=== PATIENT | male | born 1985 | race African-American/Black ===

== ENCOUNTER 2024-06-17 10:29 | Outpatient (CLI) | payer OTHER, SELFPAY ==
--- NOTE | ~2024-06-17 | XR_ITS ---
XR knee RT 3V Ordering provider: Colton Carreon MD History: . R52 - Pain, unspecified . Comparison: None. FINDINGS: BONES: No acute fracture or dislocation. JOINT SPACES: Normal. SOFT TISSUES: Normal. IMPRESSION: No acute osseous abnormality right knee. Reviewed, dictated and finalized at location A. MACHINE SETUP OPERATOR
== END 2024-06-17 10:30 | disposition home or self-care (01) ==
LOC: MICIMG 10:30
PROVIDERS: PCP Orthopaedic Surgery; Visit Provider Orthopaedic Surgery
DX: M25.561 Pain in right knee (principal)
CPT/HCPCS: 73562

== ENCOUNTER 2024-06-30 09:22 | Outpatient (CLI) | payer OTHER, SELFPAY ==
--- NOTE | ~2024-06-30 | MR_ITS ---
EXAMINATION: MR lumbar spine wo con DATE: 06/30/2024 09:58 INDICATION: Lumbago with sciatica, right-sided. TECHNIQUE: Magnetic resonance imaging (MRI) of the lumbar spine was performed without intravenous con trast. Sequences included sagittal T2-weighted FSE, sagittal T2-weighted FS FSE, sagittal T1-weighted FSE, and axial T2-weighted FSE. COMPARISON: None FINDINGS: There is 8 degrees levocurvature of thoracolumbar spine. Vertebral body heights are normal. Intervertebral disc heights are normal. The distal spinal cord signal intensity is normal. The conus medullaris is at T12-L1. The following disc levels are specifically discussed: L1-L2: The disc does not extend beyond the endplate margin. There is mild bilateral facet joint osteo arthritis. There is no neural foraminal stenosis. There is no central canal stenosis. L2-L3: The disc does not extend beyond the endplate margin. There is mild bilateral facet joint osteo arthritis. There is no neural foraminal stenosis. There is no central canal stenosis. L3-L4: The disc does not extend beyond the endplate margin. There is mild bilateral facet joint osteo arthritis. There is no neural foraminal stenosis. There is no central canal stenosis. L4-L5: The disc is bulging and has an annular fissure. There is mild bilateral facet joint osteoarthr itis. There is moderate right and mild left neural foraminal stenosis. There is mild central canal st enosis. L5-S1: The disc does not extend beyond the endplate margin. There is mild bilateral facet joint osteo arthritis. There is no neural foraminal stenosis. There is no central canal stenosis. IMPRESSION: 1. Moderate right neural foraminal stenosis at L4-L5. Otherwise mild lumbar spondylosis. Reviewed, dictated and finalized at location A. ING MACHINE OPERATOR IMPRESSION: 1. Moderate right neural foraminal stenosis at L4-L5. Otherwise mild lumbar spo ndylosis.
== END 2024-06-30 09:23 | disposition home or self-care (01) ==
PROVIDERS: PCP Physician Assistant; Visit Provider Physician Assistant
DX: M48.07 Spinal stenosis, lumbosacral region (principal); M47.816 Spondylosis without myelopathy or radiculopathy, lumbar region; M54.41 Lumbago with sciatica, right side; G89.29 Other chronic pain; M54.42 Lumbago with sciatica, left side
CPT/HCPCS: 72148

== ENCOUNTER 2024-09-12 09:27 | Outpatient (CLI) | payer OTHER, SELFPAY ==
--- NOTE | ~2024-09-12 | MR_ITS ---
EXAMINATION: MR knee RT wo con DATE: 09/12/2024 09:58 INDICATION: Chondromalacia at the right knee TECHNIQUE: Magnetic resonance imaging (MRI) of the right knee was performed without intravenous contr ast. Sequences included coronal PD-weighted FSE, coronal PD-weighted FS FSE, sagittal T2-weighted FS E, sagittal PD-weighted FS FSE and axial PD weighted fat saturated FSE. COMPARISON: None. FINDINGS: Medial compartment: Medial meniscus is normal. There is mild partial-thickness chondral fissuring along the medial rim of the central to posterior weightbearing medial femoral condyle. The remaining articular cartilage is normal. Lateral compartment: Lateral meniscus is normal. Articular cartilage is normal. Patellofemoral compartment: Deep chondral fissuring at the lateral patellar facet. There is also a slight elevation of the nondis placed near full-thickness chondral flap which measures 11 x 7 mm at the central aspect of the latera l patellar facet. There is minimal underlying subarticular edema-like signal change. There is also a single small deep chondral fissure at the inferior aspect of the medial patellar facet. Trochlear car tilage is normal. Ligaments and tendons: Anterior and posterior cruciate ligaments are normal. The medial collateral ligament and fibular katerina ateral ligament complex are normal. The extensor mechanism is normal. The visualized medial and later al hamstring tendons as well as the iliotibial band are normal. Fluid: Physiologic amount of fluid in the joint space. No loose osteochondral bodies identified. Moderate-si zed Hernández's cyst measuring 4.1 x 1.9 x 1.0 cm. Osseous/other: No fracture or pathologic marrow replacing process. IMPRESSION: 1. High-grade patellar chondromalacia with slight elevation of a nondisplaced 11 x 7 mm chondral flap at the lateral patellar facet. 2. Moderate grade chondromalacia with partial-thickness chondral fissuring/fraying along the medial r im of the central to posterior weightbearing medial femoral condyle. Reviewed, dictated and finalized at location B. [facility] [employer] IMPRESSION: 1. High-grade patellar chondromalacia with slight elevation of a nondisplaced 1 1 x 7 mm chondral flap at the lateral patellar facet. 2. Moderate grade chondromalacia with partial-thickness chondral fissuring/fray ing along the medial rim of the central to posterior weightbearing medial femor al condyle.
== END 2024-09-12 09:28 | disposition home or self-care (01) ==
PROVIDERS: PCP Physician Assistant; Visit Provider Orthopaedic Surgery
DX: M94.261 Chondromalacia, right knee (principal)
CPT/HCPCS: 73721

== ENCOUNTER 2024-10-27 00:23 | Day surgery (SDC) | payer OTHER, SELFPAY ==
[2024-10-16 16:09] VITALS: BMI 31.8
--- NOTE | 2024-10-16 16:15 | PC.NURSE ---
Report to the Outpatient Waiting Room, entrance under the green pavilion located off [facility], at time _0600_ on date _[id number]_. Planned Procedure Time: _0730_.? Time changes happen often and if your time is changed the preop area will call you the afternoon before. - You and your visitor will be asked to self-screen and do not enter if you have any COVID symptoms. Please call surgeon if you need to reschedule. - A mask is optional within the hospital at this time. Patients may have clear liquids (water, carbonated beverages, clear teas, apple juice) until 3 hours prior to surgery with a maximum of 20 ounces. - No food from midnight until time of surgery and no smoking, or chewing tobacco (or any form of nicotine). No chewing gum, candy or mints. Take only the following medications with a SIP of water on the morning of surgery: ____Bupropion and if needed may take Hydoxyzine and or Gabapentin.____ DO NOT STOP ANY OF YOUR OTHER PRESCRIPTION MEDICATIONS PRIOR TO SURGERY EXCEPT THE FOLLOWING Hold all vitamins and supplements for 3 days per anesthesiologist. Medications to discontinue per physician Date to take last dose Please no make-up, nail costa rican, hairspray, perfume, deodorant, or body powder the day of surgery.? No jewelry (including any body piercings) or valuables the day of surgery, leave them at home.? Please take a shower or bath the night before, or the morning of, surgery with an antibacterial soap.? Wear comfortable, loose fitting clothing.? - Jewelry must be removed prior to entering the operating room.? Rings and piercings that are not removed may be cut off. - The hospital will not accept responsibility for valuables.? - Please leave all valuables, including medications, at home the day of surgery. If you are going home after surgery, a licensed intermodal truck driver must drive you home.? - NO public transportation without another adult if you receive anesthesia. - We recommend that an adult stay with you for 24 hours following discharge. - We also recommend that you do not drive, make important decision, drink alcoholic beverages, or take any drugs that were not prescribed by your health care provider for at least 24 hours after your discharge time. Follow any additional instructions given to you from your surgeon. Telephone instructions given to __Robert__and asked if any additional questions and then verbalized understanding. Patient advised to call surgeon office or pre surgery nurse liaison [phone] if any additional questions.
--- NOTE | 2024-10-23 07:10 | PM.IMHP ---
H&P: HPI History of Present Illness Date/Time: 10/23/24 07:10 Chief Complaint: Patient is knee pain right. He has catching and locking of his knee. He has failed conservative treatment like to consider arthroscopic intervention. His MRI scan demonstrates patellar cartilaginous flap. Review of Systems Musculoskeletal: Musculoskeletal: Reports arthralgias, Reports joint swelling and Reports stiffness Neurologic: Reports abnormal gait PMFSH Past Medical History Medical History Anxiety Depression PTSD (post-traumatic stress disorder) Surgical History Surgical History [place] teeth removed Social History Social History Smoking status: Current every day smoker Tobacco type: e-cigarettes/vaping Alcohol intake: current Drinks per week: 4 Substance use type: does not use Do You Feel Safe in your Home?: Yes Lack of Transportation: No Lack of Food: Never True Current Housing: I Have Housing Concerned About Future Housing: No Difficulty Paying Gas/Electric Bills: No Difficulty Paying for Meds: No Currently Unemployed: No Education: Bachelor's Degree Difficulty w/ Childcare or Family Care: No Living arrangements: with family Occupation/Education: occupation Additional occupation/education comments: [employer] care concerns: No Meds Home Medications and Allergies Home Medications ?Medication ?Instructions ?Recorded ?Confirmed ?Type bupropion HCl 100 mg tablet,12 hr 100 mg PO DAILY 05/20/24 10/16/24 History sustained-release (Wellbutrin SR) hydroxyzine HCl 25 mg tablet 25 mg PO ONCE PRN anxiety 05/20/24 10/16/24 History gabapentin 300 mg capsule 300 mg PO TID 06/19/24 10/16/24 History Allergies Allergy/AdvReac Type Severity Reaction Status Date / Time amoxicillin Allergy Intermediate Swelling Verified 10/16/24 16:07 Exam Narrative: On exam he is motion his knee from 0 to 120?. He has got some catching and locking and a markedly positive patellar grind. Neurologically he is grossly intact. He walks with an antalgic gait. 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 Sequences included coronal PD-weighted FSE, coronal PD-weighted FS FSE, sagittal T2-weighted FSE, sagittal PD-weighted FS FSE and axial PD weighted fat saturated FSE. COMPARISON: None. FINDINGS: Medial compartment: Medial meniscus is normal. There is mild partial-thickness chondral fissuring along the medial rim of the central to posterior weightbearing medial femoral condyle. The remaining articular cartilage is normal. Lateral compartment: Lateral meniscus is normal. Articular cartilage is normal. Patellofemoral compartment: Deep chondral fissuring at the lateral patellar facet. There is also a slight elevation of the nondisplaced near full-thickness chondral flap which measures 11 x 7 mm at the central aspect of the lateral patellar facet. There is minimal underlying subarticular edema-like signal change. There is also a single small deep chondral fissure at the inferior aspect of the medial patellar facet. Trochlear cartilage is normal. Ligaments and tendons: Anterior and posterior cruciate ligaments are normal. The medial collateral ligament and fibular collateral ligament complex are normal. The extensor mechanism is normal. The visualized medial and lateral hamstring tendons as well as the iliotibial band are normal. Fluid: Physiologic amount of fluid in the joint space. No loose osteochondral bodies identified. Moderate-sized Hernández's cyst measuring 4.1 x 1.9 x 1.0 cm. Osseous/other: No fracture or pathologic marrow replacing process. IMPRESSION: 1. High-grade patellar chondromalacia with slight elevation of a nondisplaced 11 x 7 mm chondral flap at the lateral patellar facet. 2. Moderate grade chondromalacia with partial-thickness chondral fissuring/fraying along the medial rim of the central to posterior weightbearing medial femoral condyle. Knee X-Ray 06/17/24 Knee MRI 09/12/24 Orthopedics Result Report 05/20/24 Lumbar Spine MRI 06/30/24 Assessment and Plan Assessment and plan (1) Chondral defect of right patella: Code(s): M23.8X1 - Other internal derangements of right knee Status: Acute Assessment and Plan: Patient has a chondral flap tear delamination of the right patella. He has failed conservative treatment like to proceed with arthroscopic intervention. I discussed risks, benefits, limitations, and alternatives with the patient in detail he would like to proceed. Will proceed per his request. He understands with delamination of the cartilage this is essentially arthritis.
[2024-10-27] VITALS (11 sets, daily range): BP systolic 88–132; BP diastolic 48–87; PULSE 63–81; RESP 10–19; TEMP 36.2–36.4; O2SAT 96–100; BMI 30.6
--- OUTSIDE RECORDS SUMMARY | 2024-10-27 00:27 | XMS_ITS | Referral Summary ---
Author Organization [facility] [place] Address [address] [place] [address] Care Team Providers Care Color Making Supervisor Name Role Phone Sae Flores Primary Care Provider Encounters Date Type Department Care Team Description 09/02/2024 Telephone [facility] [address] [phone] Krish Woodson MD Orders Only 09/02/2024 10:00 AM PRINTING MACHINE MECHANIC Office Visit [facility] [address] [place] [phone] Krish Woodson MD AARON (obstructive sleep apnea) from Last 3 Months Allergies Active Allergy Reactions Criticality Noted Date Comments Amoxicillin Anaphylaxis High 06/12/2024 Medications ibuprofen (ADVIL,MOTRIN) 800 mg tablet Take 1 tablet (800 mg total) by mouth every 8 (eight) hours as needed for pain Active gabapentin (NEURONTIN) 300 mg capsuleIndicati ons:Neuropathic Pain Take 1 capsule (300 mg total) by mouth every 8 (eight) hours 90 capsule 2 06/12/2024 Active Active Problems Problem Noted Date Diagnosed Date AARON (obstructive sleep apnea) 09/02/2024 Assessment & Plan (09/02/2024 10:18 AM PRINTING MACHINE MECHANIC): The patient is currently benefitting from the auto titrating CPAP unit with a range of 9-15 cm water pressure for ongoing symptoms of AARON. He is having mask leak with the nasal pillows mask. I have recommended changing to a regular nasal CPAP mask with a chinstrap. I will send the order to [facility] and he will follow up here in 2 months. Social History Tobacco Use Types Packs/Day Years Used Date Smoking Tobacco: Every Day Vaping Sex and Gender Information Value Date Recorded Sex Assigned at Not on file Legal Sex Male 9:25 AM CDT Gender Identity Not on file Sexual Orientation Not on file Last Filed Vital Signs Vital Sign Reading Time Taken Comments Blood Pressure 122/80 09/02/2024 9:52 AM PRINTING MACHINE MECHANIC Pulse 74 09/02/2024 9:52 AM PRINTING MACHINE MECHANIC Temperature 36.9 C (98.4 F) 09/02/2024 9:52 AM PRINTING MACHINE MECHANIC Respiratory Rate 18 09/02/2024 9:52 AM PRINTING MACHINE MECHANIC Oxygen Saturation 98% 09/02/2024 9:52 AM PRINTING MACHINE MECHANIC Inhaled Oxygen Concentration - - Weight 99.3 kg (219 lb) 09/02/2024 9:52 AM PRINTING MACHINE MECHANIC Height 176.5 cm (5' 9.5 ) 09/02/2024 9:52 AM PRINTING MACHINE MECHANIC Body Mass Index 31.88 09/02/2024 9:52 AM PRINTING MACHINE MECHANIC Plan of Treatment Not on file Insurance [facility] Care Teams Color Making Supervisor Relationship Specialty Start Date End Date Sae Flores PA [address] [place], [place] [id number] PCP - General Physician Coke Oven Patcher 04/09/24
--- OUTSIDE RECORDS SUMMARY | 2024-10-27 00:27 | XMS_ITS | Patient Health Record ---
Author Organization [facility] Catalan MD [facility] Address [address] [place] [address] Care Team Providers Care Plush Weaver Name Role Phone Kraig Correa Primary Care Provider Dr. ELIZABETH Stack Unavailable [phone] Allergies Allergen (clinical drug ingredient) Drug/Non Drug Allergy documented on EMR Reaction Allergy Type Onset Date Status amoxicillin amoxicillin (uncoded) swollen throat Allergy Active Reason For Referral No Information Medications Medication SIG (Take, Route, Fr equency, Duration) Notes Start Date End Date Status Wellbutrin XL 300 MG 1 tablet in the mor noman Orally Once a day Active Problems Problem Type SNOMED Code ICD Code Onset Dates Problem Status W/U Status Risk Notes Problem Obstructive sleep apnea syndrome (disorder) (01389004) Obstructive sleep apnea (adult) (pediatric) (G47.33) Active confirmed Problem Obstructive sleep apnea (46324621) Obstructive sleep apnea (G47.33) Active confirmed Plan Of Treatment Pending Test Test Name Order Date POLYSOMNOGRAPHY W/PAP [id number] 01/17/20 23 Insurance Providers Payer Name Payer Address Payer Phone Subscriber Number Group Number Insured Name Patient Relationship to Insured Coverage Start Date Coverage End Date [facility] [id number] [place] [phone] [id number] Ajay Talamantes Self - patient is the insured 3 Medical (General) History Medical History History ICD Code anxiety depression Have there been any changes to your past medical history?: No Have any medications changed since your last appointment?: No Surgical History Surgery Date(Month/Year) wisdom teeth extraction
--- OUTSIDE RECORDS SUMMARY | 2024-10-27 00:27 | XMS_ITS | Clinical Summary ---
Author Organization [facility] [place] Address [address] [place] [address] Care Team Providers Care Rectifying Attendant Name Role Phone Sae Flores Primary Care Provider Allergies Active Allergy Reactions Criticality Noted Date [...] 09/02/2024 Assessment & Plan (09/02/2024 10:18 AM CLAY MAKER): The patient is currently benefitting from the [...] will follow up here in 2 months. Encounters Date Type Department Care Team Description 09/02/2024 10:00 AM CLAY MAKER Office Visit [facility] [address] [phone] Krish Woodson MD AARON (obstructive sleep apnea) 09/02/2024 Telephone [facility] [address] [phone] Krish Woodson MD Orders Only from Last 3 Months Medical History Medical History Date Comments [place] teeth extracted H/O radiofrequency ablation (RFA) of nerve of sherwin mbar spine Social History Tobacco Use Types Packs/Day Years Used Date Smoking Tobacco: Every Day Vaping Sex and Gender Information Value Date Recorded Sex Assigned at Not on file Legal Sex Male 9:25 AM CDT Gender Identity Not on file Sexual Orientation Not on file Obstetrics History Last Filed Vital Signs Vital Sign Reading Time Taken Comments Blood Pressure 122/80 09/02/2024 9:52 AM CLAY MAKER Pulse 74 09/02/2024 9:52 AM CLAY MAKER Temperature 36.9 C (98.4 F) 09/02/2024 9:52 AM CLAY MAKER Respiratory Rate 18 09/02/2024 9:52 AM CLAY MAKER Oxygen Saturation 98% 09/02/2024 9:52 AM CLAY MAKER Inhaled Oxygen Concentration - - Weight 99.3 kg (219 lb) 09/02/2024 9:52 AM CLAY MAKER Height 176.5 cm (5' 9.5 ) 09/02/2024 9:52 AM CLAY MAKER Body Mass Index 31.88 09/02/2024 9:52 AM CLAY MAKER Plan of Treatment Health Maintenance Due Date Last Done Comments Depression Screening 1985 Hepatitis C Screening 1985 Hepatitis B Screening 2003 Regular Well Visit/Exam 18-64 2003 Pneumococcal vaccine <65 (1 of 2 - PCV) 2004 Varicella Vaccines (1 of 2 - 13+ 2-dose series) 06/02/2014 Covid-19 Vaccine ( - season) 2024 01/03/2022, 09/30/2020, 09/02/2020 Influenza Vaccine (#1) 2024 , 07/18/2021, 07/12/2020, Additional history exists DTaP/Tdap/Td Vaccine (3 - Td or Tdap) 06/06/2031 06/06/2021, 04/21/2011, 07/06/2005 HPV Vaccines Aged Out No longer eligi ble based on patient's age to complete this topic Insurance [facility] Care Teams Rectifying Attendant Relationship Specialty Start Date End Date Sae Flores PA [address] [place] [address] PCP - General Physician Dulite Machine Bluer 04/09/24
--- OUTSIDE RECORDS SUMMARY | 2024-10-27 00:27 | XMS_ITS | Continuity of Care Document ---
Author Name [facility] Organization [facility] Care Team Providers Care Remotely Operated Vehicle Name Role Phone [facility] Unavailable Unavailable Problems Combined list of problems from Department of Defense and Veterans Affairs facilities. It does not include entries that were removed or entered in error. Problem Status Onset Date Problem Type Date of Resolution Comments Source Daily vape user Active 09/28/2024 Diagnosis 005 [facility] URI - Upper respiratory infection Active 09/28/2024 Diagnosis 0055[facility] Administrative statuses Active 07/25/2024 Diagnosis 00[facility] Adjustment disorder with depressed mood Active Condition [facility] Adjustment disorder with mixed emotional features Active Condition [facility] Esophageal reflux finding Active Condition [facility] Personal history of COVID-19 Active Condition 0117C-AF- U-[facility]th [facility] [place] Knee pain Active Condition 0117C-AF- U[facility] [place] Low back pain Active Condition 0109A-AM C [facility] Migraine Active Condition 0117C-AF- U-[facility]th [facility] [place] Medications Combined list of outpatient medications from Department of Defense and Veterans Affairs facilities.Medications provided include 1) outpatient medications from the last 15 months, and 2) patient-reported medications. Medication Details Route Status Patient Instructions Prescription Expires Prescription Number Last Dispense Date Ordering Provider Order Date Order Qty Source buPROPion 150 mg/24 hours (XL) oral tablet, extended release 3 tab(s), Oral, every 24 hr, # 90 tab(s), 3 total refill(s ), [facility]ena [facility], [id number] Oral (given by mouth) Discont inued 05/30/20232022 90.0 0109C-A [facility] buPROPion 150 mg/24 hours (XL) oral tablet, extended release 3 tab(s), Oral, every 24 hr, # 90 tab(s), 3 total refill(s ), Sagrario [facility], Pharmacy : [facility] #[id number] Oral (given by mouth) Discont inued 07/04/20232022 90.0 0109C-A [facility] buPROPion 150 mg/24 hours (XL) oral tablet, extended release 3 tab(s), Oral, every 24 hr, # 270 tab(s), 1 total refill(s ), Sagrario [facility], Pharmacy : [facility] Oral (given by mouth) Ordered 3 2022 270.0 0109C-A [facility] buPROPion 300 mg/24 hours (XL) oral tablet, extended release 1 tab(s), Oral, every 24 hr, # 30 tab(s), 3 total refill(s ), Sagrario [facility], Pharmacy : [facility] #[id number] Oral (given by mouth) Discont inued 04/20/20232022 30.0 0109C-A [facility] diclofenac 1% topical gel See instruct ions, Apply 2 grams (upper extremit ies) or 4 grams (lower extremit ies) to affected area topicall y four times daily as needed for pain. Max total body dose of 32 grams per day, # 100 g, 0 total refill(s ), Sagrario [facility], Pharmacy : [facility] Complet ed 03/11/2024 3 2023 100.0 0109C-A [facility] ergocalcife rol 1.25 mg (50,000 intl units) oral capsule 1 cap(s), Oral, every week, # 8 cap(s), 0 total refill(s ), Sagrario [facility], Pharmacy : [facility] Oral (given by mouth) Discont inued 04/20/2023 2 2022 8.0 0366C-A F-C-559 [facility] Flexeril 10 mg oral tablet 1 tab(s), Oral, every day at bedtime, # 30 tab(s), 0 total refill(s ), Sagrario muñoz, Pharmacy : [facility] Oral (given by mouth) Discont inued 05/12/2022 2 2021 30.0 [facility] Flexeril [facility] mg oral tablet 1 tab(s), Oral, TID, # 5 tab(s), 0 total refill(s ), Acute, Pharmacy : [facility] Oral (given by mouth) Complet ed 04/13/2024 4 2023 5.0 6130C-A f-C-375 [facility] FLUoxetine 10 mg oral capsule 1 cap(s), Oral, Daily, Take three tabs (30mg) for mood, # 90 cap(s), 2 total refill(s ), Sagrario [facility], Pharmacy : [facility] #[id number] Oral (given by mouth) Discont inued 10/04/20222022 90.0 0109C-A [facility] H gabapentin 300 mg capsule See Instruct ions, # 90 EA, 2 total refill(s ), Hard Stop Ordered 06/12/2025 4 2023 90.0 Ambulat ory Pharmac y hydrOXYzine hydrochlori de 10 mg oral tablet See Instruct ions, take 1/2 to 1 tablet by mouth twice a day as needed for acute anxiety. May take 1/2 to 3 tablets at bedtime as needed for sleep, # 90 tab(s), 1 total refill(s ), Sagrario [facility], Pharmacy : [facility] #[id number] Discont inued 11/01/20222022 90.0 0109C-A [facility] hydrOXYzine hydrochlori de 10 mg oral tablet See Instruct ions, take 1/2 to 1 tablet by mouth twice a day as needed for acute anxiety. May take 1/2 to 3 tablets at bedtime as needed for sleep, # 90 tab(s), 1 total refill(s ), Hard Stop, 3/1/23 1:43:40 PM [employer], Pharmacy : [facility] Complet ed 10/04/2022 2 2022 90.0 0109C-A [facility] hydrOXYzine hydrochlori de 25 mg oral tablet 1 tab(s), Oral, Daily, # 60 tab(s), 2 total refill(s ), Acute, 04/20/23 2:56:00 PM CDT, Pharmacy : [facility] #[id number] Oral (given by mouth) Discont inued 04/20/20232022 60.0 0109C-A [facility] hydrOXYzine hydrochlori de 25 mg oral tablet 1 tab(s), Oral, TID, PRN as needed for anxiety, # 60 tab(s), 2 total refill(s ), Acute, 07/04/23 9:51:00 AM [employer]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 also may take 1 - 3 tablets by mouth at bedtime for sleep as neeeded. , # 60 tab(s), 2 total refill(s ), Acute, 07/04/24 12:00:00 AM [employer], Pharmacy : [facility] Oral (given by mouth) Complet ed 07/04/2024 3 2023 60.0 0109C-A [facility] H ibuprofen 600 mg oral tablet 1 tab(s), Oral, every 6 hr, # 360 tab(s), 1 total refill(s ), Sagrario hernandez, Pharmacy : [facility] Oral (given by mouth) Ordered 4 2023 360.0 6130C-A -C-375 [facility] Lexapro 5 mg oral tablet 2 tab(s), Oral, Daily, Take one half tab (2.5mg) for 3-4 days, then increase to 5mg daily, # 60 tab(s), 0 total refill(s ), Maintena nce, [id number] Oral (given by mouth) Discont inued 11/01/20222022 60.0 0109C-A [facility] Mobic 15 mg oral tablet 1 tab(s), Oral, Daily, # 30 tab(s), 0 total refill(s ), Maintena nce, Pharmacy : [facility] Oral (given by mouth) Discont inued 05/12/2022 2 2021 30.0 0109C-A [facility] Mobic 15 mg oral tablet 1 tab(s), Oral, Daily, # 30 tab(s), 0 total refill(s ), Maintena nce, Pharmacy : [facility] Oral (given by mouth) Complet ed 07/21/2022 2 2021 30.0 0109C-A [facility] Mucinex mg, Oral, every 12 hr, 0 total refill(s ), Maintena nce Oral (given by mouth) Ordered 2024 0055C-3 [facility] PreviDent 5000 Booster 1.1% topical paste See Instruct ions, Apply 1 thin ribbon to toothbru sh. [place] thorough ly at bedtime as directed by provider ., # 51 g, 0 total refill(s ), Maintena nce, Pharmacy : [facility] Discont inued 05/30/20232022 51.0 0366C-A F-C-559 MED S[facility] -Randol ph PROzac 10 mg oral capsule See Instruct ions, Oral, take one capsule by mouth every day for 7 days, then take two capsules every day, # 53 cap(s), 3 total refill(s ), Maintena nce, 30 days, Pharmacy : [facility] Oral (given by mouth) Discont inued 08/09/20222022 53.0 0109C-A [facility] PROzac 10 mg oral capsule See Instruct ions, Oral, take one capsule by mouth every day for 7 days, then take two capsules every day, # 53 cap(s), 3 total refill(s ), [facility], 30 days, Pharmacy : [facility] #[id number] Oral (given by mouth) Discont inued 09/20/20222022 53.0 0109C-A [facility] ramelteon 8 mg oral tablet 1 tab(s), Oral, every day at bedtime, # 30 tab(s), 3 total refill(s ), [facility], Pharmacy : [facility] #[id number] Oral (given by mouth) Discont inued 04/20/20232022 30.0 0109C-A [facility] topiramate 25 mg oral capsule, extended release 1 cap(s), Oral, Daily, take one tab at night, # 7 cap(s), 0 total refill(s ), [facility], Pharmacy : [facility] #[id number] Oral (given by mouth) Discont inued 04/20/20232022 7.0 0109C-A [facility] traZODone 50 mg oral tablet 1 tab(s), Oral, every day at bedtime, PRN sleep, take 1-2 tabs at night for insomnia , # 60 tab(s), 1 total refill(s ), [facility], Pharmacy : [facility] #[id number] Oral (given by mouth) Discont inued 12/20/20222022 60.0 0109C-A [facility] H traZODone 50 mg oral tablet 1 tab(s), Oral, every day at bedtime, PRN sleep, take 2 tabs at night for insomnia , # 60 tab(s), 2 total refill(s ), [facility], Pharmacy : [facility] #[id number] Oral (given by mouth) Discont inued 04/20/20232022 60.0 0109C-A [facility] Wellbutrin XL 150 mg/24 hours oral tablet, extended release 1 tab(s), Oral, every 24 hr, # 30 tab(s), 0 total refill(s ), Sagrario hernandez, Pharmacy : [id number] Oral (given by mouth) Discont inued 11/22/20222022 30.0 0109C-A [facility] ZyrTEC Daily, 0 total refill(s ), Sagrario hernandez Ordered 2024 0055C-3 [facility] Allergies, Adverse Reactions, Alerts Combined list of allergies from Department of Defense and Veterans Affairs facilities. It does not include entries that were removed or entered in error. Substance Category Reaction Severity Reaction type Status Date Reported Comments Source amoxicillin Drug allergy Swelling round eyes Unknown Active 12/25/2005 0117C-AF -ASU-59t h MDW-SUPRIYA [place] Immunizations Combined list of available immunizations from the Department of Defense and Veterans Affairs facilities. 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 Source influenza, injectable, quadrivalent- pf 2021 SAREPRASAD [id number] 150 complet ed Result Comment: Route: Unknown Manufactu rer: OT ([facility]) 0109C-A [facility] COVID Vaccine Pfizer 2021 SAROC [id number] 208 complet ed Result Comment: Route: Unknown Manufactu rer: OT (PFR) 0109C-A [facility] SARS-CoV-2 mRNA(toziname gxx-ulab-orn) vac 2021 Betzaida 217 complet ed Result Comment: Unit: Unknown Manufactu rer: () 0117C-A F-ASU-5 9th MDW-[facility] [place] influenza, injectable, quadrivalent- pf 2020 EllylaSanchmile 150 complet ed Result Comment: Unit: Unknown Manufactu rer: () 0117C-A F-ASU-5 9th [facility] [place] Td (adult)-PF 2020 Betzaida [id number] 113 complet ed Result Comment: Route: Unknown Manufactu rer: Transcrib ed (TRS) 0117C-A F-ASU-5 9th [facility] [place] tetanus-dipht h toxoids (Td) adult/adol 2020 Betzaida [id number] 09 complet ed Result Comment: Route: Unknown Manufactu rer: OTH ([facility]) 0117C-A F-ASU-5 9th [facility] [place] COVID Vaccine Pfizer 2020 [id number] 208 PFIZER complet ed COVID Vaccine Pfizer 09/30/20 Given Ambulat ory Pharmac y COVID Vaccine Pfizer 2020 [id number] 208 PFIZER complet ed COVID Vaccine Pfizer 09/30/20 Given Ambulat ory Pharmac y COVID Vaccine Pfizer 2020 [id number] 208 PFIZER complet ed COVID Vaccine Pfizer 09/02/20 Given Ambulat ory Pharmac y COVID Vaccine Pfizer 2020 [id number] 208 PFIZER complet ed COVID Vaccine Pfizer 09/02/20 Given Ambulat ory Pharmac y Influenza, inj, MDCK, quadrivalent- pf 2019 SARAHEPRASAD 171 complet ed Result Comment: Route: Unknown Manufactu rer: () 0109C-A [facility] influenza, seasonal, injectable 2019 TRANSCR IBED 141 complet ed influenza , seasonal, injectabl e 07/07/20 Given Ambulat ory Pharmac y influenza, seasonal, injectable 2019 TRANSCR IBED 141 complet ed influenza , seasonal, injectabl e 07/07/20 Given Ambulat ory Pharmac y influenza, injectable, quadrivalent- pf 2018 [id number] 150 Seqirus complet ed influenza , injectabl e, quadrival ent-pf 06/30/19 Given Ambulat ory Pharmac y influenza, injectable, quadrivalent- pf 2017 [id number] 150 GlaxoSmithKli ne complet ed influenza , injectabl e, quadrival ent-pf 06/20/18 Given Ambulat ory Pharmac y influenza, injectable, quadrivalent- pf 2017 [id number] 150 GlaxoSmithKli ne complet ed influenza , injectabl e, quadrival ent-pf 06/20/18 Given Ambulat ory Pharmac y influenza, injectable, quadrivalent- pf 2016 [id number] 150 GlaxoSmithKli ne complet ed influenza , injectabl e, quadrival ent-pf 06/19/17 Given Ambulat ory Pharmac y influenza, injectable, quadrivalent- pf 2016 [id number] 150 GlaxoSmithKli ne complet ed influenza , injectabl e, quadrival ent-pf 06/19/17 Given Ambulat ory Pharmac y influenza, injectable, quadrivalent 2015 [id number] 158 GlaxoSmithKli ne complet ed influenza , injectabl e, quadrival ent 05/11/16 Given Ambulat ory Pharmac y influenza, injectable, quadrivalent 2015 [id number] 158 GlaxoSmithKli ne complet ed influenza , injectabl e, quadrival ent 05/11/16 Given Ambulat ory Pharmac y influenza, seasonal, injectable-pf 2014 [id number] 140 CSL Behring complet ed influenza , seasonal, injectabl e-pf 04/20/15 Given Ambulat ory Pharmac y influenza, seasonal, injectable-pf 2014 [id number] 140 CSL Behring complet ed influenza , seasonal, injectabl e-pf 04/20/15 Given Ambulat ory Pharmac y typhoid Vi capsular polysaccharid e vac 2014 [id number] 101 sanofi pasteur complet ed typhoid Vi capsular polysacch aride vac 03/22/15 Given Ambulat ory Pharmac y anthrax vaccine 2014 [id number] 24 [employer] complet ed anthrax vaccine 03/22/15 Given Ambulat ory Pharmac y typhoid Vi capsular polysaccharid e vac 2014 [id number] 101 sanofi pasteur complet ed typhoid Vi capsular polysacch aride vac 03/22/15 Given Ambulat ory Pharmac y anthrax vaccine 2014 [id number] 24 [employer] complet ed anthrax vaccine 03/22/15 Given Ambulat ory Pharmac y influenza, live, intranasal,qu adrivalent 2013 [id number] 149 Medimmune Inc comple t ed influenza , live, intranasa l,quadriv alent 05/05/14 Given Ambulat ory Pharmac y influenza, live, intranasal,qu adrivalent 2013 [id number] 149 Med[employer] Inc comple t ed influenza , live, intranasa l,quadriv alent 05/05/14 Given Ambulat ory Pharmac y influenza, live, intranasal,qu adrivalent 2012 [id number] 149 Med[employer] Inc comple t ed influenza , live, intranasa l,quadriv alent 04/11/13 Given Ambulat ory Pharmac y influenza, live, intranasal,qu adrivalent 2012 [id number] 149 Med[employer] Inc comple t ed influenza , live, intranasa l,quadriv alent 04/11/13 Given Ambulat ory Pharmac y anthrax vaccine 2012 [id number] 24 [employer] complet ed anthrax vaccine 11/22/12 Given Ambulat ory Pharmac y anthrax vaccine 2012 [id number] 24 [employer] complet ed anthrax vaccine 11/22/12 Given Ambulat ory Pharmac y tuberculin purified protein derivative 2012 [id number] 96 sanofi pasteur complet ed tuberculi n purified protein derivativ e 08/30/12 Given Ambulat ory Pharmac y anthrax vaccine 2011 [id number] 24 [employer] complet ed anthrax vaccine 04/18/12 Given Ambulat ory Pharmac y anthrax vaccine 2011 [id number] 24 [employer] complet ed anthrax vaccine 04/18/12 Given Ambulat ory Pharmac y influenza virus vaccine, live 2011 [id number] 111 Med[employer] Inc comple t ed influenza virus vaccine, live 04/16/12 Given Ambulat ory Pharmac y influenza virus vaccine, live 2011 [id number] 111 Med[employer] Inc comple t ed influenza virus vaccine, live 04/16/12 Given Ambulat ory Pharmac y tuberculin purified protein derivative 2011 [id number] 96 sanofi pasteur complet ed tuberculi n purified protein derivativ e 03/19/12 Given Ambulat ory Pharmac y tuberculin purified protein derivative 2011 [id number] 96 sanofi pasteur complet ed tuberculi n purified protein derivativ e 03/15/12 Given Ambulat ory Pharmac y anthrax vaccine 2011 [id number] 24 [employer] complet ed anthrax vaccine 10/09/11 Given Ambulat ory Pharmac y anthrax vaccine 2011 [id number] 24 [employer] complet ed anthrax vaccine 10/09/11 Given Ambulat ory Pharmac y influenza virus vaccine, live 2010 [id number] 111 Med[employer] Inc comple t ed influenza virus vaccine, live 04/25/11 Given Ambulat ory Pharmac y influenza virus vaccine, live 2010 [id number] 111 Med[employer] Inc comple t ed influenza virus vaccine, live 04/25/11 Given Ambulat ory Pharmac y tetanus, diphtheria, acellular pertu is 2010 [id number] 115 GlaxoSmithKli ne complet ed tetanus, diphtheri a, acellular pertussis 04/21/11 Given Ambulat ory Pharmac y anthrax vaccine 2010 [id number] 24 [employer] complet ed anthrax vaccine 04/21/11 Given Ambulat ory Pharmac y typhoid Vi capsular polysaccharid e vac 2010 [id number] 101 sanofi pasteur complet ed typhoid Vi capsular polysacch aride vac 04/21/11 Given Ambulat ory Pharmac y tetanus, diphtheria, acellular pertu is 2010 [id number] 115 GlaxoSmithKli ne complet ed tetanus, diphtheri a, acellular pertussis 04/21/11 Given Ambulat ory Pharmac y typhoid Vi capsular polysaccharid e vac 2010 E0549 101 sanofi pasteur complet ed typhoid Vi capsular polysacch aride vac 04/21/11 Given Ambulat ory Pharmac y anthrax vaccine 2010 [id number] 24 [employer] complet ed anthrax vaccine 04/21/11 Given Ambulat ory Pharmac y influenza virus vaccine,split 2009 [id number] 15 sanofi pasteur complet ed influenza virus vaccine,s plit 04/15/10 Given Ambulat ory Pharmac y influenza virus vaccine,split 2009 [id number] 15 sanofi pasteur complet ed influenza virus vaccine,s plit 04/15/10 Given Ambulat ory Pharmac y influenza virus vaccine,split 2009 [id number] 15 sanofi pasteur complet ed influenza virus vaccine,s plit 08/10/09 Given Ambulat ory Pharmac y Novel Influenza-H1N 1-09,live virus,nasal 2009 [id number] 125 Med[employer] Inc comple t ed Novel Influenza -N7S3-73, live virus,italo al 08/10/09 Given Ambulat ory Pharmac y Novel Influenza-H1N 1-09,live virus,nasal 2009 [id number] 125 Med[employer] Inc comple t ed Novel Influenza -M9F9-94, live virus,italo al 08/10/09 Given Ambulat ory Pharmac y influenza virus vaccine,split 2009 [id number] 15 sanofi pasteur complet ed influenza virus vaccine,s plit 08/10/09 Given Ambulat ory Pharmac y influenza virus vaccine, live 2007 [id number] 111 [employer] Inc comple t ed influenza virus vaccine, live 06/02/08 Given Ambulat ory Pharmac y influenza virus vaccine, live 2006 [id number] 111 Med[employer] Inc comple t ed influenza virus vaccine, live 06/25/07 Given Ambulat ory Pharmac y influenza virus vaccine, live 2006 [id number] 111 [employer] comple t ed influenza virus vaccine, live 06/25/07 Given Ambulat ory Pharmac y anthrax vaccine 2006 [id number] 24 [employer] complet ed anthrax vaccine 10/09/06 Given Ambulat ory Pharmac y anthrax vaccine 2006 [id number] 24 [employer] complet ed anthrax vaccine 10/09/06 Given Ambulat ory Pharmac y vaccinia (smallpox) vaccine [id number] [facility] complet ed vaccinia (smallpox ) vaccine 09/28/06 Given Ambulat ory Pharmac y vaccinia (smallpox) vaccine [id number] [facility] complet ed vaccinia (smallpox ) vaccine 09/28/06 Given Ambulat ory Pharmac y anthrax vaccine 2006 [id number] 24 [employer] complet ed anthrax vaccine 09/25/06 Given Ambulat ory Pharmac y typhoid vaccine, parenteral 2006 F7468-7 41 sanofi pasteur complet ed typhoid vaccine, parentera l 09/25/06 Given Ambulat ory Pharmac y typhoid vaccine, parenteral 2006 B5029-6 41 sanofi pasteur complet ed typhoid vaccine, parentera l 09/25/06 Given Ambulat ory Pharmac y anthrax vaccine 2006 [id number] 24 [employer] complet ed anthrax vaccine 09/25/06 Given Ambulat ory Pharmac y influenza virus vaccine,split 2005 [id number] 15 sanofi pasteur complet ed influenza virus vaccine,s plit 07/09/06 Given Ambulat ory Pharmac y influenza virus vaccine,split 2005 [id number] 15 sanofi pasteur complet ed influenza virus vaccine,s plit 07/09/06 Given Ambulat ory Pharmac y influenza virus vaccine, whole virus 2005 SARAHEPRASAD [id number] 16 complet ed Result Comment: Route: Unknown Manufactu rer: OTH ([facility]) 0109C-A [facility]-FS H hepatitis A adult vaccine 2005 [id number] 52 [employer] complet ed hepatitis A adult vaccine 02/20/06 Given Ambulat ory Pharmac y hepatitis A adult vaccine 2005 [id number] 52 [employer] Inc complet ed hepatitis A adult vaccine 02/20/06 Given Ambulat ory Pharmac y influenza virus vaccine, live 2004 [id number] 111 Med[employer] Inc comple t ed influenza virus vaccine, live 07/12/05 Given Ambulat ory Pharmac y hepatitis A adult vaccine 2004 [id number] 52 GlaxoSmithKli ne complet ed hepatitis A adult vaccine 07/12/05 Given Ambulat ory Pharmac y influenza virus vaccine, live 2004 [id number] 111 Med[employer] Inc comple t ed influenza virus vaccine, live 07/12/05 Given Ambulat ory Pharmac y hepatitis A adult vaccine 2004 [id number] 52 GlaxoSmithKli ne complet ed hepatitis A adult vaccine 07/12/05 Given Ambulat ory Pharmac y tuberculin purified protein derivative 2004 [id number] 96 sanofi pasteur complet ed tuberculi n purified protein derivativ e 07/06/05 Given Ambulat ory Pharmac y poliovirus vaccine, inactivated 2004 [id number] 10 sanofi pasteur complet ed polioviru s vaccine, inactivat ed 07/06/05 Given Ambulat ory Pharmac y tetanus-dipht h toxoids (Td) adult/adol 2004 [id number] 09 sanofi pasteur complet ed tetanus-d iphth toxoids (Td) adult/ado l 07/06/05 Given Ambulat ory Pharmac y meningococcal polysaccharid e (MPSV4) 2004 [id number] 32 sanofi pasteur complet ed meningoco ccal polysacch aride (MPSV4) 07/06/05 Given Ambulat ory Pharmac y tetanus-dipht h toxoids (Td) adult/adol 2004 [id number] 09 sanofi pasteur complet ed tetanus-d iphth toxoids (Td) adult/ado l 07/06/05 Given Ambulat ory Pharmac y meningococcal polysaccharid e (MPSV4) 2004 [id number] 32 sanofi pasteur complet ed meningoco ccal polysacch aride (MPSV4) 07/06/05 Given Ambulat ory Pharmac y poliovirus vaccine, inactivated 2004 [id number] 10 sanofi pasteur complet ed polioviru s vaccine, inactivat ed 07/06/05 Given Ambulat ory Pharmac y Results Combined list of recent chemistry, hematology and other laboratory results from Department of Defense and Veterans Affairs, ranging from 15 months to all on record, depending upon the facility. Order Name Results Value Reference Range Date Interpretation Specimen Comments Source Hematology Eosinophil % Auto 3.7 % 0 - 8 07/24 0109A-A [facility] Hematology Lymph Absolute 1.56 10^3/u L 1.20 - 3.75129 07/24 N 0109A-A [facility] H Hematology [place] Absolute 0.29 10^3/u L 0.08 - 2.98360 07/24 N 0109A-A [facility] Hematology Eos Absolute 0.17 10^3/u L 0.00 - 2.24929 07/24 N [facility] Baso Absolute 0.05 10^3/u L 0.00 - 0.95767 07/24 H 0109A-A [facility] Hematology Imm. Granulocyte Absolute 0.00 10^3/u L 0.00 - 2.48795 07/24 N 0109A-A [facility] H Hematology Lymphocyte % Auto 34.2 % 18.0 - 46.0 07/24 N 0109A-A [facility] Hematology Monocyte % Auto 6.4 % 0.0 - 10.0 07/24 N 0109A-A [facility] Hematology Basophil % Auto 1.1 % 0.0 - 2.0 07/24 N 0109A-A [facility] Hematology Neutro Absolute 2.48 10^3/u L 2.50 - 6.01188 07/24 L 0109A-A [facility] Hematology Neutrophil % Auto 54.4 % 41.0 - 73.0 07/24 N 0109A-A [facility] Chemistry TSH, Sensitive 0.74 uIU/mL 0.30 - 5.00 07/24 N Interpretive Data: If the hsTSH is <0.60 or >6.60 uIU/mL, reflex testing for Free T4 will be performed. Interference was observed at biotin concentratio ns above 30 ng/mL. Samples should not be taken from patients receiving therapy with high biotin doses (i.e. >5 mg/day) until at least 8 hours following the last biotin administrati on. 0109A-A [facility] Hematology Hematocrit 40.4 % 41.0 - 52.0 07/24 L 0109A-A [facility] Hematology RDW SD 43 07/24 0109A-A [facility] Hematology WBC 4.56 10^3/u L 3.60 - 10.31732 07/24 N 0109A-A [facility] Hematology Platelets 240 10^3/u L 142 - [id number] 07/24 N 0109A-A [facility] Hematology MCH 32.3 pg 28.0 - 33.0 07/24 N 0109A-A [facility] Hematology RDW CV 12 % 12 - 14 07/24 N 0109A-A [facility] Hematology Hemoglobin 13.4 g/dL 14.0 - 18.0 07/24 L 0109A-A [facility] Hematology MPV 9.4 fL 6.7 - 11.1 07/24 N 0109A-A [facility] Hematology MCHC 33.2 g/dL 32.0 - 36.0 07/24 N 0109A-A [facility] H Hematology RBC 4.15 10^6/u L 4.20 - 6.94510 07/24 L 0109A-A [facility] Hematology MCV 97.3 fL 83.0 - 98.0 07/24 N 0109A-A [facility] Chemistry Vitamin B12 390 pg/mL 232 - 1245 07/24 N Interpretive Data: 08 JUN 2017 Notice: Samples for this assay should not be taken from patients receiving therapy with high biotin doses (i.e. > 5 mg/day) until 8 hours following last biotin administrati on. 0117A-A F-ASU-5 9th [facility] Chemistry Folate Lvl 11.5 ng/mL 07/24 N Interpretive Data: 05 JUL 2017 Notice: Samples for thes asssay should not be taken from patients receiving therapy with high biotin doses (i.e. > 5 mg/day) until 8 hours following last biotin administrati on. Please note that these values were obtained in the [place] during National Health and Nutrition Examination Survey (NHANES), 1999 -2004. it should be taken into consideratio n that differences in the expected values may exist with respect to population and dietary status. New Reference Range effective 17 0117A-A F-ASU-5 9[facility] Chemistry Vitamin D 25 OH 13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 Carolina moyer advised to follow-up with PCM for post COVID symptoms (ie SOB, ALMENDAREZ, palpitations, chest pain, cough); if symptoms worsen, go to emergency room; verbalized understanding. Member reported travelling to [facility] for about 10 days on leave and advised to be seen by PCM or specialty provider; emergency room precautions braydon young rior to leaving; verbalized understanding. Member was advised to follow-up with pulmonology and PCM as recommended; verbalized understanding. Carolina moyer was reminded to obtain the HIV lab draw when able. ?Appointment was completed via telephone, and lasted 5-10 min. Ordered: HIV-1/O/2 EPI [id number] Repository Sample EPI [id number] Extracted from:Title: Office Clinic Note Author: MARIE PINON NP Date: 02/27/22 1. L ow back pain 36yo AD [employer] male with acute on chronic low back pain needs x-ray and MRI evaluation; lumbar pain radiating down left leg to behind knee no trauma. prior h/o RFA bilaterally. x-ray and MRI patient given written instruction sheet to call for MRI scheduling referral to physical therapy; in between to his team on [place] profile f or no running, push ups, pull ups for 30 days; referral to physical therapy; will refer to pain management once MRI returned. Have prescribed M obic t o be used o nce daily and Flexeril nightly as needed for acute flare. D iscussed sedative side effects of Flexeril. Have also encouraged him to engage in flexibility training Have also placed consult with physical therapy for evaluation through back classes to help with patient education. P atient has no red flags per history or exam. Have advised to return to clinic if symptoms persist or worsen. P atient verbalized understanding and agrees with plan. Lower back pain: Discussed associated risk factor strenuous work; patient has/not signs or symptoms red flags. Ddx includes but not limited to radiculopathy vs lumbar spinal stenosis vs Osteoarthritis - Will order MRI given symptoms of spinal cord compression,low risk of metastatic cancer or infection, radiculopathy can not attributable to a single nerve root level. -- Conservative therapy with PT - Pain control with NSAIDS pt denies allergy or other intolerance, chronic kidney disease, hypertension, peptic ulcer disease, or with cardiovascular disease. - non-benzodiazepine skeletal muscle relaxant (cyclobenzaprine) as long-term adjunctive pharmacotherapy - Ordered: cyclobenzaprine(Flexeril 10 mg oral tablet), 1 tab(s), Oral, every day at bedtime, # 30 tab(s), 0 total refill(s), Maintenance, 1 tab(s) Oral every day at bedtime, Pharmacy: [facility] [Not filled] meloxicam(Mobic 15 mg oral tablet), 1 tab(s), Oral, Daily, # 30 tab(s), 0 total refill(s), Maintenance, 1 tab(s) Oral Daily, Pharmacy: [facility] [Not filled] MRI Spine Lumbar w/o Contrast XR Spine Lumbosacral 4+ Views Referral Request 2.0 2. S hortness of breath Referral to pulmonary chronic since COVID in Aug. Patient verbalized understanding of plan of care and stated agreement. 36yo AD [employer] male c/o shortness of breath with activity particularly with exercise since having COVID in August he feels like he cannot get a deep breath in please eval and treat. thank you. --This Referral Is Electronically Signed by the Ordering Provider-- Ordered: Referral Request 2.0 10/27/2024 [address] [place] [address] Assessment and Plan Extracted from:Title : [facility] URI Author: MAEGAN TAVARES PA Date: 09/26/24 1. U RI - Upper respiratory infection 39 Years o ld M w/ PMH of seasonal allergies c /o cold-like sx x 2 d ay(s). VS notable for HR 114. Repeat 111. PE unremarkable. Lungs CTAB. No evidence of r espiratory distress, dehydration. M ost likely viral URI. L ow concern for PNA, bacterial sinusitis, strep pharyngitis. Tachycardia likely d/t current illness. CP?likely d/t frequent cough. - Discussed supportive care - Tylenol/NSAIDs for fever/pain - P t declined Mucinex since he has some at home - Quarters placed for 24 hrs - ED precautions given - F/u prn. Will consider empiric treatment with antibiotics if sx persist or worsen 2. D aily vape user Pt reports daily vape use. Pt aware of risks from vaping. States he has a stressful job and i s not interested in quitting today. - Recommended pt limit vaping with current URI sx - F/u prn The patient (is) World Wide Qualified. 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 Pt verbalized understanding and agreement. MAEGAN TAVARES, 1st Lt, PAIsaiah [facility] [place] [address] Extracted from:Title: [facility] Profile Update Author: PANKAJ FLORES PA Date: 07/25/24 1. A dministrative statuses [age]-year-old male seeking updated profile. Recommend placement on 60 day profile following umbilical hernia repair restricting from push-ups and sit ups. Recommend placement on 60 day profile for suspected meniscal tear and right knee restricting from run/walk testing. - Follow-up with PCM after orthopedic evaluation The patient (is) World Wide Qualified. 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 Quite often unanticipated grammatical, syntax, homophones, and other interpretive errors are inadvertently transcribed by the computer software. Please disregard these errors and excuse any errors that have escaped final proofreading. If are any questions regarding documentation, please contact this provider directly. Extracted from:Title: Fam med - R leg strain Author: ADEEL GUZMAN Date: 04/08/24 1. S train of adductor muscle of thigh H&P c/w acute muscle strain vs sprain, likely right adductor group. Low suspicion of fracture from history. - ibuprofen 600 q6hr for 2 weeks, then prn - no imaging indicated at this time - flexeril 5mg po qd x5 tabs - stretching, RICE, continued use discussed with Pt - quarters today - PT profile [id number]: no walk/sprint/run - worldwide qualified, cleared for mobility - f/u in 4 weeks to assess improvement, if improving f/u prn - f/u with pcp for DAG7/PHQ9 Ordered: cyclobenzaprine(Flexeril 5 mg oral tablet), 1 tab(s), Oral, TID, # 5 tab(s), 0 total refill(s), Acute, 1 tab(s) Oral TID, Pharmacy: [facility] [Not filled] ibuprofen(ibuprofen 600 mg oral tablet), 1 tab(s), Oral, every 6 hr, # 360 tab(s), 1 total refill(s), Maintenance, 1 tab(s) Oral every 6 hr, Pharmacy: [facility] [Not filled] Addendum by PAUL IBARRA DO on April 08, 2024 13:08:54 CDT I certify that I was physically present with the resident and patient. I have discussed the diagnosis and treatment plan with the resident [id number]. I have reviewed the note and concur with the findings, assessment, and plan. Follow up as listed. All labs/imaging/consults to be followed by the ordering provider. Paul Ibarra DO, Capt, [place], Staff Physician The patient (is ) World Wide Qualified. 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 Visit deployment related: N o Profile Reviewed MEB in progress: No IMR/ASIMS Status: [X] Green (no action), Member aware. Extracted from:Title: [facility] - Abd Pain/Knee Pain Author: MARKEL CINTRON MD Date: 03/11/24 1. K nee pain Chronic, bilateral, L>R Previous injections of L knee with some relief, is limiting his activity Repeat xr today bilaterally, previous MRI of L knee in 2016 showed OCL, will repeat imaging Suspect OCL vs more generalized OA causing majority of his sx Has done PT in past, consider sports med if no surgical indications Ordered: MRI Knee w/o Contrast Left XR Knee Weight Bearing 3+ Left XR Knee Weight Bearing 3+ Right Referral Request 2.0 - DoD 2. L ow back pain Negative SLR and no red flag symptoms (bowel/bladder changes, saddle anesthesia, weakness) make radiculopathy/spinal cord pathology unlikely. Symptoms and history most consistent with non-specific low back pain. Discussed with patient that low back pain is complicated, but that movement is the best treatment for disorder. Also discussed chronic nature of LBP, and how it may takes many months to fully resolve, if it ever does resolve fully. Has done PT and PM in past Would like repeat referral to PM, will place today If patient has any new weakness, difficulty walking, worsening numbness/tingling, or bowel/bladder issues, they should go to the emergency department 3. U mbilical pain Chronic, intermittent Sspect possible abd wall hernia given exam Will place ultrasound, if confirming for hernia, will refer to gen surg Otherwise, start PPI if no hernia Follow up if not improving Ordered: US Abdominal Wall The patient (is ) World Wide Qualified. 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 Visit deployment related: N o Profile Reviewed MEB in progress: No IMR/ASIMS Status: [X] Green (no action), Member aware. Patient is in agreement with the plan and voiced understanding. Markel Cintron MD, CAQSM ABDULLAHI Farias, Sports/Family Medicine Physician [address] [facility] Faculty Physician This note was dictated using [employer] dictation software. While it was proofread for errors, there may still be grammatical and dictation errors. Extracted from:Title: Profile Update Author: ELIZABETH MELGOZA MD Date: 08/09/23 1. A dministrative statuses profile(s) a ppropriately resolved. 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 P atient i s cleared for PHA and to participate in AF fitness program without restriction. S ee attached ANNUAL PERIODIC HEATLH ASSESSMENT note. P atient d enies any removal of spleen. Denies SI/HI. L abs and radiology reports over the past year r arabellawed, all abnormal results have been addressed, preventative health measures and IMR reviewed with pt l asting 15 min. Patient advised to follow up with PCM, Behavioral Health, ED/911, or [facility] as needed for continuation of care, and/or further evaluation during exacerbations of physical and/or psychological illness or injury. Appointment was completed via telephone lasting 15 min. 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 PMH AARON uses cpap, nicotine dependence, chronic pain, hx vit d deficiency. initial visit by Dr Correa Aug 2022. Hx of suicidal behavior in 2016. has hx of emotional neglect that noticeably changes his affect when discussing. multiple deployments . anticipating upcoming PCS soon in August 2023 to [facility]. Patient stopped Prozac due to sexual SE and noted benefit within a few days however with ongoing mood/hyperarousal symptoms. previously Started Lexapro but reported low adherence. previous trial of topamax for mood stability and low frustration tolerance but did not like the way he felt and he stopped using it after a very short trial. today he n otes benefit from Wellbutrin and will c ontinue 450mg. h e continues to have occasional anxiety that is overwhelming to the point where he feels the need to use hydroxyzine which is now 3 times per week and efficacious when used. will trial hydroxyzine to be used as sleep aide. endorses lack of benefit from ramelteon in past. in past he has used trazodone but did not like morning side effect. Ongoing stressor of FAP/cps case regarding 15yo son, that is still pending. previous concern for cluster b personality traits. not interested in nicotine cessation. monitor for appropriate adherence of med. No safety concerns present during this eval. Patient remains appropriate for outpt level of care. Plan --continue W ellbutrin 450mg XR daily for mood --continue Hydroxyzine 12.5mg - 25mg po prn tid as needed for anxiety --START hydroxyzine 25-75mg po prn qhs for sleep -recommend sleep hygiene. educated about avoiding nicotine use within 4 hours of going to sleep. 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 recommend eliminating screen time on devices within 1 hour of going to sleep. - patient to follow up with status of psychotherapy referral placed previously. will follow up with new provider at [facility] in about 4- 8 weeks 1. C hronic post-traumatic stress disorder 2. D epression, unspecified Orders: buPROPion(buPROPion 150 mg/24 hours (XL) oral tablet, extended release), 3 tab(s), Oral, every 24 hr, # 270 tab(s), 1 total refill(s), Maintenance, 3 tab(s) Oral every 24 hr, Pharmacy: [facility] [Federal Rx: #270 last filled 07/04/23] hydrOXYzine(hydrOXYzine hydrochloride 25 mg oral tablet), 1 tab(s), Oral, TID, PRN anxiety, may take 1 tablet by mouth as needed for anxiety up to three times per day. also may take 1 - 3 tablets by mouth at bedtime for sleep as neeeded., # 60 tab(s), 2 total refill(s), Acute, 07/04/2024, 1 tab(s) Oral TID,P... Extracted from:Title: Office Clinic Note - Knee sprain/Vasectomy Author: SARA BRADLEY NP Date: 06/07/23 1. C ontraception care education done Referred to urology Ordered: diclofenac topical(diclofenac 1% topical gel), See instructions, Apply 2 grams (upper extremities) or 4 grams (lower extremities) to affected area topically four times daily as needed for pain. Max total body dose of 32 grams per day, # 100 g, 0 total refill(s), Maintenance, Apply 2 grams (upper e... XR Knee Weight Bearing 3+ Left Referral Request 2.0 2. 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 PMH AARON uses cpap, nicotine dependence, chronic pain, hx vit d deficiency. initial visit by Dr Correa Aug 2022. Hx of suicidal behavior in 2016. has hx of emotional neglect that noticeably changes his affect when discussing. multiple d eployments . anticipating upcoming P CS soon. Patient stopped Prozac due to sexual SE and noted benefit within a few days however with ongoing mood/hyperarousal symptoms. previously Started Lexapro but reported low adherence. previous trial of topamax for mood stability and low frustration tolerance b ut did not like the way he felt and he stopped using it after a very short trial. Has noted benefit from Wellbutrin and will increase to 450mg as he continues to have breakthrough anxiety, ongoing irritability. Previously Dr Correa was concerned that bupropion was increasing irritability, though ongoing daytime work related and marital stressors seem to precipitate irritability. Ongoing stressor of FAP/cps case, that is still pending. p revious concern for arlin franco personality traits. Discussed risk benefits and alternatives and patient amenable to med changes in bupropion. not interested in nicotine cessation. monitor for appropriate adherence of med. No safety concerns present during this eval. Patient remains appropriate for outpt level of care. plan medications --INCREASe to W ellbutrin 450mg XR daily for mood --continue Hydroxyzine 12.5mg - 25mg po prn tid as needed for anxiety seek out psychotherapy, referral placed rtc n ov 29 at 0900 in person. 1. C hronic post-traumatic stress disorder 2. D epression, unspecified Orders: buPROPion(buPROPion 150 mg/24 hours (XL) oral tablet, extended release), 3 tab(s), Oral, every 24 hr, # 90 tab(s), 3 total refill(s), Maintenance, 3 tab(s) Oral every 24 hr, Pharmacy: [facility] #[id number] [External Rx] Extracted from:Title: [facility] 7W Psychiatry follow up #1 Author: YOLA FELIX Date: 04/20/23 This is a 37 yo MSGT AD AF with ppsyhx of PTSD, MDD. 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 PMH AARON uses cpap, nicotine dependence, chronic pain, hx vit d deficiency. initial visit by Dr Correa Aug 2022. Hx of suicidal behavior in 2015. multiple d eployments Patient stopped Prozac due to sexual SE and noted benefit within a few days however with ongoing mood/hyperarousal symptoms. previously Started Lexapro but reported low adherence. previous trial of topamax for mood stability and low frustration tolerance b ut did not like the way he felt and he stopped using it after a very short trial. Has noted benefit from Wellbutrin and will increase to 450mg as he continues to have breakthrough anxiety, ongoing irritability. Previously Dr Correa was concerned that bupropion was increasing irritability, though ongoing daytime work related stressors that seem to precipitate irritability. Ongoing stressor of FAP/cps case, that is still pending. Transition to marriage in summer 2022. Patient shares cognitive distortions and externalization and has hx of emotional neglect that noticeably changes his affect when discussing. Has cluster b personality traits. Discussed risk benefits and alternatives and patient amenable to med changes. not interested in nicotine cessation. Will discontinue Trazodone and Ramelteon as he is no longer having trouble with sleep with onset of cpap and he had not been taking. No safety concerns present during this initial eval. Patient remains appropriate for outpt level of care. plan medications --increase to Wellbutrin 450mg XR daily for mood --continue Hydroxyzine 25mg po prn tid as needed for anxiety --discontinue Trazodone 50-100mg PRN for insomnia --discontinue Ramelteon 8mg for insomnia --discontinue Topomax 25mg daily for irritability/RUBIN seek out psychotherapy, placed referral 1. D epression, unspecified 2. C hronic post-traumatic stress disorder Ordered: Referral Request 2.0 Orders: buPROPion(buPROPion 150 mg/24 hours (XL) oral tablet, extended release), 3 tab(s), Oral, every 24 hr, # 90 tab(s), 3 total refill(s), Maintenance, 3 tab(s) Oral every 24 hr, Pharmacy: [facility] #[id number] [External Rx] hydrOXYzine(hydrOXYzine hydrochloride 25 mg oral tablet), 1 tab(s), Oral, TID, PRN as needed for anxiety, # 60 tab(s), 2 total refill(s), Acute, 04/20/2024, 1 tab(s) Oral TID,PRN:as needed for anxiety, Pharmacy: [facility] #[id number] [External Rx] Extracted from:Title: [facility], 6T, MultiD, Psychiatry Follow Up Note Author: Madeline Kraig [place] Date: 01/10/23 This is a 37 yo 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 Current dx impression concerning for PTSD and also meets criteria for MDD. He is p harmacologically treatment naive. W ill start Prozac per his stated preference when discussing initial agents with indications to aid his treatment. Someone else is prescribing him hydroxyzine which he uses and finds somewhat helpful. Gabapentin would be good agent to explore in future in lieu of Hydroxyzine but currently patient feels it is helpful enough to not merit changing. Today sleep is primary issue so will start Trazodone. Discussed the risks, benefits, and alternatives and patient agreeable to trial. Will titrate prozac due to partial response. [1] Patient stopped Prozac due to sexual SE and noted benefit within a few days however with ongoing mood/hyperarousal symptoms. Instead of salvaging this medication that was otherwise helpful will try another agent particularly as patient has been off for 6 days (acknowledging long half life). Started Lexapro at [facility] but reporting low adherence. As patient primary wanting to work on motivation and low energy, will trial alternative medication with more dopaminergic/nonepienphric tone like Wellbutrin. We've now titrated to 300mg but not titrating further due to immergence of increased irritability. Wanting to continue agent but ongoing low frustration tolerance so will add Topomax (pt also endorsing frequent RUBIN). Discussed risk benefits and alternatives and patient amenable to starting. Will continue Hydroxyzine Trazodone and Ramelteon (not started yet). Sleep consult approved, pending actual appt. Employed [place] approach to consideration of psychosocial stressors. No safety concerns present during this initial eval. Patient remains appropriate for outpt level of care. 1. D epression, unspecified --Continue Wellbutrin 300mg XR daily 2. P ost-traumatic stress disorder, chronic --Continue PRN Hydroxyzine --Continue Trazodone 50-100mg PRN for insomnia --Start Rameltino 8mg for insomnia --Start Topomax 2 5mg daily for irritability/RUBIN Orders: topiramate(topiramate 25 mg oral capsule, extended release), 1 cap(s), Oral, Daily, take one tab at night, # 7 cap(s), 0 total refill(s), Maintenance, 1 cap(s) Oral Daily,Instr:take one tab at night, Pharmacy: [facility] #[id number] [External Rx] Prognosis: Fair Benefits, Risks, Alternatives Discussed: Yes Treatment Plan: Referral to individual, family or group therapy Number of Visits Expected: Other: TBD Target Symptoms: Anxiety Goals of Treatment: Decrease in target symptoms, Other: Methods of Monitoring Outcomes: Other: TBD Evaluation Type: Time based Goals of Treatment #1: Other: Deferred Treatment Planning Requirements: 2) Patient agrees to attend appointments, engage in treatment, discuss any concerns in order to meet treatment goals, 3) Provider will leverage patient strengths and limit potential barriers to treatment Extracted from:Title: [facility], 6T, MultiD, Psychiatry Follow Up Note Author: Kraig Correa Date: 12/20/22 T his is a 37 yo 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 Current dx impression concerning for PTSD and also meets criteria for MDD. He is p harmacologically treatment naive. W ill start Prozac per his stated preference when discussing initial agents with indications to aid his treatment. Someone else is prescribing him hydroxyzine which he uses and finds somewhat helpful. Gabapentin would be good agent to explore in future in lieu of Hydroxyzine but currently patient feels it is helpful enough to not merit changing. Today sleep is primary issue so will start Trazodone. Discussed the risks, benefits, and alternatives and patient agreeable to trial. Will titrate prozac due to partial response. [1] Patient stopped Prozac due to sexual SE and noted benefit within a few days however with ongoing mood/hyperarousal symptoms. Instead of salvaging this medication that was otherwise helpful will try another agent particularly as patient has been off for 6 days (acknowledging long half life). Started Lexapro at [facility] but reporting low adherence. As patient primary wanting to work on motivation and low energy, will trial alternative medication with more dopaminergic/nonepienphric tone like Wellbutrin. Given benefit of PRN Hydroxyzine, will increase dose to reflect how patient is actually taking it.[1] Wellbutrin has been helpful for energy during day but not titrating today due to ongoing anxiety/irritability symptoms. Instead will titrate PRN traz and add ramelteon as sleep is foremost concern today. Topomax/Prazosin will be next step for hyperarousal sx although not nightmare burden. M y sleep consult was rejected so submitted again today with extensive justification. Employed [place] approach to consideration of psychosocial stressors. No safety concerns present during this initial eval. Patient remains appropriate for outpt level of care. 1. P ost-traumatic stress disorder, chronic --Continue PRN Hydroxyzine --Continue Trazodone 50-100mg PRN for insomnia --Start Rameltino 8mg for insomnia 2. M ajor depressive disorder, recurrent, moderate --Continue Wellbutrin 300mg XR daily Orders: ramelteon(ramelteon 8 mg oral tablet), 1 tab(s), Oral, every day at bedtime, # 30 tab(s), 3 total refill(s), Maintenance, 1 tab(s) Oral every day at bedtime, Pharmacy: [facility] #[id number] [External Rx] traZODone(traZODone 50 mg oral tablet), 1 tab(s), Oral, every day at bedtime, PRN sleep, take 2 tabs at night for insomnia, # 60 tab(s), 2 total refill(s), Maintenance, 1 tab(s) Oral every day at bedtime,PRN:sleep,Instr:take 2 tabs at night for insomnia, Pharmacy: [facility] #[id number] [E Referral Request 2.0 Prognosis: Fair Benefits, Risks, Alternatives Discussed: Yes Treatment Plan: Referral to individual, family or group therapy Number of Visits Expected: Other: TBD Target Symptoms: Anxiety Goals of Treatment: Decrease in target symptoms, Other: Methods of Monitoring Outcomes: Other: TBD Evaluation Type: Time based Goals of Treatment #1: Other: Deferred Treatment Planning Requirements: 2) Patient agrees to attend appointments, engage in treatment, discuss any concerns in order to meet treatment goals, 3) Provider will leverage patient strengths and limit potential barriers to treatment Extracted from:Title: [facility], 6T, MultiD, Psychiatry Follow Up Note Author: Kraig Correa Date: 11/22/22 This is a 37 yo 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 Current dx impression concerning for PTSD and also meets criteria for MDD. He is p harmacologically treatment naive. W ill start Prozac per his stated preference when discussing initial agents with indications to aid his treatment. Someone else is prescribing him hydroxyzine which he uses and finds somewhat helpful. Gabapentin would be good agent to explore in future in lieu of Hydroxyzine but currently patient feels it is helpful enough to not merit changing. Today sleep is primary issue so will start Trazodone. Discussed the risks, benefits, and alternatives and patient agreeable to trial. Will titrate prozac due to partial response. [1] Patient stopped Prozac due to sexual SE and noted benefit within a few days however with ongoing mood/hyperarousal symptoms. Instead of salvaging this medication that was otherwise helpful will try another agent particularly as patient has been off for 6 days (acknowledging long half life). Started Lexapro at [facility] but reporting low adherence. As patient primary wanting to work on motivation and low energy, will trial alternative medication with more dopaminergic/nonepienphric tone like Wellbutrin. Given benefit of PRN Hydroxyzine, will increase dose to reflect how patient is actually taking it.[1] Partial beenfit from Wellbutrin but ongoign sx so will titrate. Still waiting for sleep study. Put in order as well. Patient will call [facility] line to check status. Employed [place] approach to consideration of psychosocial stressors. No safety concerns present during this initial eval. Patient remains appropriate for outpt level of care. 1. P ost-traumatic stress disorder, chronic --Continue PRN Hydroxyzine --Continue Trazodone 50-100mg PRN for insomnia 2. M ajor depressive disorder, recurrent, moderate --Stop Lexapro --Inc to Wellbutrin 300mg XR daily Orders: buPROPion(buPROPion 300 mg/24 hours (XL) oral tablet, extended release), 1 tab(s), Oral, every 24 hr, # 30 tab(s), 3 total refill(s), Maintenance, 1 tab(s) Oral every 24 hr, Pharmacy: [facility] #[id number] [External Rx] Prognosis: Fair Benefits, Risks, Alternatives Discussed: Yes Treatment Plan: Referral to individual, family or group therapy Number of Visits Expected: Other: TBD Target Symptoms: Anxiety Goals of Treatment: Decrease in target symptoms, Other: Methods of Monitoring Outcomes: Other: TBD Evaluation Type: Time based Goals of Treatment #1: Other: Deferred Treatment Planning Requirements: 2) Patient agrees to attend appointments, engage in treatment, discuss any concerns in order to meet treatment goals, 3) Provider will leverage patient strengths and limit potential barriers to treatment Extracted from:Title: [facility], 6T, MultiD, Psychiatry Follow Up Note Author: Kraig Correa Date: 11/01/22 This is a 37 yo 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 Current dx impression concerning for PTSD and also meets criteria for MDD. He is p harmacologically treatment naive. W ill start Prozac per his stated preference when discussing initial agents with indications to aid his treatment. Someone else is prescribing him hydroxyzine which he uses and finds somewhat helpful. Gabapentin would be good agent to explore in future in lieu of Hydroxyzine but currently patient feels it is helpful enough to not merit changing. Today sleep is primary issue so will start Trazodone. Discussed the risks, benefits, and alternatives and patient agreeable to trial. Will titrate prozac due to partial response. [1] Patient stopped Prozac due to sexual SE and noted benefit within a few days however with ongoing mood/hyperarousal symptoms. Instead of salvaging this medication that was otherwise helpful will try another agent particularly as patient has been off for 6 days (acknowledging long half life). Started Lexapro at but reporting low adherence. As patietn primary wanting to work on motivation and low energy, will trial alternative medication with more dopaminergic/nonepienphric tone like Wellbutrin. Given benefit of PRN Hydroxyzine, will increase dose to reflect how patient is actually taking it. Still waiting for sleep study. Messaged PCM to help expedite and encouraged patient to call [facility] line to check status. No safety concerns present during this initial eval. Patient remains appropriate for outpt level of care. We agree to meet in person for out next appt 11/22 at 1:00AM 1. M ajor depressive disorder, recurrent, moderate --Stop Lexapro --Start Wellbutrin 150mg XR daily 2. P ost-traumatic stress disorder, chronic --Continue PRN Hydroxyzine --Continue Trazodone 50-100mg PRN for insomnia Orders: hydrOXYzine(hydrOXYzine hydrochloride 25 mg oral tablet), 1 tab(s), Oral, Daily, # 60 tab(s), 2 total refill(s), Acute, 11/02/2025, 1 tab(s) Oral Daily, Pharmacy: [facility] #[id number] [External Rx] buPROPion(Wellbutrin XL 150 mg/24 hours oral tablet, extended release), 1 tab(s), Oral, every 24 hr, # 30 tab(s), 0 total refill(s), Maintenance, 1 tab(s) Oral every 24 hr, Pharmacy: [facility] #[id number] [External Rx] Prognosis: Fair Benefits, Risks, Alternatives Discussed: Yes Treatment Plan: Referral to individual, family or group therapy Number of Visits Expected: Other: TBD Target Symptoms: Anxiety Goals of Treatment: Decrease in target symptoms, Other: Methods of Monitoring Outcomes: Other: TBD Evaluation Type: Time based Goals of Treatment #1: Other: Deferred Treatment Planning Requirements: 2) Patient agrees to attend appointments, engage in treatment, discuss any concerns in order to meet treatment goals, 3) Provider will leverage patient strengths and limit potential barriers to treatment Extracted from:Title: [facility], 6T, MultiD, Psychiatry Follow Up Note Author: Kraig Correa Date: 10/04/22 This is a 37 yo 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 Current dx impression concerning for PTSD and also meets criteria for MDD. He is p harmacologically treatment naive. W ill start Prozac per his stated preference when discussing initial agents with indications to aid his treatment. Someone else is prescribing him hydroxyzine which he uses and finds somewhat helpful. Gabapentin would be good agent to explore in future in lieu of Hydroxyzine but currently patient feels it is helpful enough to not merit changing. Today sleep is primary issue so will start Trazodone. Discussed the risks, benefits, and alternatives and patient agreeable to trial. Will titrate prozac due to partial response. [1] Patient stopped Prozac due to sexual SE and noted benefit within a few days however with ongoing mood/hyperarousal symptoms. Instead of salvaging this medication that was otherwise helpful will try another agent particularly as patient has been off for 6 days (acknowledging long half life). No safety concerns present during this initial eval. Patient remains appropriate for outpt level of care. W e agree to meet in person for out next appt 11/01 at 11:00AM 1. D epression, unspecified --Stop Prozac --Start Lexapro 2.5mg to increase to 5mg after 3-4 days if tolerated 2. P ost-traumatic stress disorder, chronic --Start Lexapro 2.5mg to increase to 5mg after 3-4 days if tolerated --Continue PRN Hydroxyzine --Continue Trazodone 50-100mg PRN for insomnia Orders: hydrOXYzine(hydrOXYzine hydrochloride 10 mg oral tablet), See Instructions, take 1/2 to 1 tablet by mouth twice a day as needed for acute anxiety. May take 1/2 to 3 tablets at bedtime as needed for sleep, # 90 tab(s), 1 total refill(s), Maintenance, take 1/2 to 1 tablet by mouth twice a day as needed for acu... escitalopram(Lexapro 5 mg oral tablet), 2 tab(s), Oral, Daily, Take one half tab (2.5mg) for 3-4 days, then increase to 5mg daily, # 60 tab(s), 0 total refill(s), Maintenance, 2 tab(s) Oral Daily,Instr:Take one half tab (2.5mg) for 3-4 days, then increase to 5mg daily, Pharmacy: [facility]. No qualifying data available. Extracted from:Title: [facility], 6T, MultiD, Psychiatry Follow Up Note Author: Kraig Correa Date: 09/20/22 This is a 37 yo 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 Current dx impression concerning for PTSD and also meets criteria for MDD. He is p harmacologically treatment naive. W ill start Prozac per his stated preference when discussing initial agents with indications to aid his treatment. Someone else is prescribing him hydroxyzine which he uses and finds somewhat helpful. Gabapentin would be good agent to explore in future in lieu of Hydroxyzine but currently patient feels it is helpful enough to not merit changing. [1] Today sleep is primary issue so will start Trazodone. Discussed the risks, benefits, and alternatives and patient agreeable to trial. Will titrate prozac due to partial response. No safety concerns present during this initial eval. Patient remains appropriate for outpt level of care. 1. P ost-traumatic stress disorder, chronic --Increase to Prozac 30mg daily for PTSD/Mood --Start Trazodone 50-100mg at night PRN for insomnia 2. M ajor depressive disorder, recurrent, moderate --Increase to Prozac 30mg daily for PTSD/Mood --Start Trazodone 50-100mg at night PRN for insomnia --Continue Hydroxyzine 10mg TID PRN for anxiety Orders: FLUoxetine(FLUoxetine 10 mg oral capsule), 1 cap(s), Oral, Daily, Take three tabs (30mg) for mood, # 90 cap(s), 2 total refill(s), Maintenance, 1 cap(s) Oral Daily,Instr:Take three tabs (30mg) for mood, Pharmacy: [facility] #[id number] [External Rx] traZODone(traZODone 50 mg oral tablet), 1 tab(s), Oral, every day at bedtime, PRN sleep, take 1-2 tabs at night for insomnia, # 60 tab(s), 1 total refill(s), Maintenance, 1 tab(s) Oral every day at bedtime,PRN:sleep,Instr:take 1-2 tabs at night for insomnia, Pharmacy: [facility] #... Prognosis: Fair Benefits, Risks, Alternatives Discussed: Yes Treatment Plan: Referral to individual, family or group therapy Number of Visits Expected: Other: TBD Target Symptoms: Anxiety Goals of Treatment: Decrease in target symptoms, Other: Methods of Monitoring Outcomes: Other: TBD Evaluation Type: Time based Goals of Treatment #1: Other: Deferred Treatment Planning Requirements: 2) Patient agrees to attend appointments, engage in treatment, discuss any concerns in order to meet treatment goals, 3) Provider will leverage patient strengths and limit potential barriers to treatment Extracted from:Title: [facility], [facility], [facility], Psychiatry Inital Visit Note Author: Kraig Correa [place] Date: 08/09/22 This is a 37 yo 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 Current dx impression concerning for PTSD and also meets criteria for MDD. He is p harmacologically treatment naive. W ill start Prozac per his stated preference when discussing initial agents with indications to aid his treatment. Someone else is prescribing him hydroxyzine which he uses and finds somewhat helpful. Gabapentin would be good agent to explore in future in lieu of Hydroxyzine but currently patient feels it is helpful enough to not merit changing. No safety concerns present during this initial eval. Patient remains appropriate for outpt level of care. 1. P ost-traumatic stress disorder, chronic --Prozac 10mg daily (titrated to 20mg after one week) 2. D epression, unspecified --Prozac 10mg daily (titrated to 20mg after one week) Orders: FLUoxetine(PROzac 10 mg oral capsule), See Instructions, Oral, take one capsule by mouth every day for 7 days, then take two capsules every day, # 53 cap(s), 3 total refill(s), Maintenance, 30 days, take one capsule by mouth every day for 7 days, then take two capsules every day, Pharmacy:... Prognosis: Fair Benefits, Risks, Alternatives Discussed: Yes Treatment Plan: Referral to individual, family or group therapy Number of Visits Expected: Other: TBD Target Symptoms: Anxiety Goals of Treatment: Decrease in target symptoms, Other: Methods of Monitoring Outcomes: Other: TBD Evaluation Type: Time based Goals of Treatment #1: Other: Deferred Treatment Planning Requirements: 2) Patient agrees to attend appointments, engage in treatment, discuss any concerns in order to meet treatment goals, 3) Provider will leverage patient strengths and limit potential barriers to treatment Extracted from:Title: Office Clinic Note Author: DIXON CAMPBELL MD Date: 07/14/22 Accessory navicular Ordered: CT Lower Extremity w/o Contrast Right Acquired pes planus Ordered: CT Lower Extremity w/o Contrast Right 1. Reviewed name, , medications and radiographs with patient. 2. Discussed non-surgical i ntervention with patient to include inserts, bracing, physical therapy to include ROM, stretching, balancing and strengthening exercises, rest, ice, elevation, compression, therapeutic injections as well as the expected a ctivity level. Patient confirms understanding. 3. The patient has been instructed to continue activity to tolerance 4. He will RTC for CT review of the right foot and orthotics f/u Extracted from:Title: Office Clinic Note Author: MARIE PINON NP Date: 05/12/22 1. F oot pain 36yo AD [facility] male with arch foot pain x 2 months; flat foot present; r/o fracture; thank you. 36yo AD [facility] male with arch foot pain x 2 months; flat foot present; ; please eval and treat. thank you. --This Referral Is Electronically Signed by the Ordering Provider-- Renewal on Mobic. If symptoms worsen or do not improve return to clinic or ER for reevaluation. Desires a profile for not running, 30 days recommended. Ordered: XR Foot Weight Bearing 3+ Right Referral Request 2.0 2. S hortness of breath 02/27/22 encounter for Shortness of breath; appointment was supposed to be for 04/23 but [place] and had to reschedule. CXR today. Keep pulmonary referral a ppointment already scheduled. Patient verbalized understanding of plan of care and stated agreement. R eferral to pulmonary chronic since COVID in Aug. Patient verbalized understanding of plan of care and stated agreement. 36yo AD [employer] male c/o shortness of breath with activity particularly with exercise since having COVID in August he feels like he cannot get a deep breath in please eval and treat. thank you. 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 [place] moyer is cleared for PHA and to participate in AF fitness program without restriction. S ee attached ANNUAL PERIODIC HEATLH ASSESSMENT note. [place] moyer denied having a splenectomy in the past. [place] moyer denies SI/HI. A vailable labs and radiology reports since last Annual PHA were reviewed and addressed if not addressed prior to this visit. [place] moyer states priority responses of occasional chest pain, dizziness, and abnormal heart rate especially post COVID and exercising; denied chest pain today, palpitations, SOB, ALMENDAREZ, syncope, nonradiating, dizziness; advised to go to emergency room; and to follow-up with PCM; verbalized understanding. [place] moyer advised to follow-up with PCM for post COVID symptoms (ie SOB, ALMENDAREZ, palpitations, chest pain, cough); if symptoms worsen, go to emergency room; verbalized understanding. Member reported travelling to [facility] for about 10 days on leave and advised to be seen by PCM or specialty provider; emergency room precautions g grayson young rior to leaving; verbalized understanding. Member was advised to follow-up with pulmonology and PCM as recommended; verbalized understanding. [place] moyer was reminded to obtain the HIV lab draw when able. ?Appointment was completed via telephone, and lasted 5-10 min. Ordered: HIV-1/O/2 EPI [id number] Repository Sample EPI [id number] Extracted from:Title: Office Clinic Note Author: MARIE PINON NP Date: 02/27/22 1. L ow back pain 36yo AD [employer] male with acute on chronic low back pain needs x-ray and MRI evaluation; lumbar pain radiating down left leg to behind knee no trauma. prior h/o RFA bilaterally. x-ray and MRI patient given written instruction sheet to call for MRI scheduling referral to physical therapy; in between to his team on [place] profile f or no running, push ups, pull ups for 30 days; referral to physical therapy; will refer to pain management once MRI returned. Have prescribed M obic t o be used o nce daily and Flexeril nightly as needed for acute flare. D iscussed sedative side effects of Flexeril. Have also encouraged him to engage in flexibility training Have also placed consult with physical therapy for evaluation through back classes to help with patient education. P atient has no red flags per history or exam. Have advised to return to clinic if symptoms persist or worsen. P atient verbalized understanding and agrees with plan. Lower back pain: Discussed associated risk factor strenuous work; patient has/not signs or symptoms red flags. Ddx includes but not limited to radiculopathy vs lumbar spinal stenosis vs Osteoarthritis - Will order MRI given symptoms of spinal cord compression,low risk of metastatic cancer or infection, radiculopathy can not attributable to a single nerve root level. -- Conservative therapy with PT - Pain control with NSAIDS pt denies allergy or other intolerance, chronic kidney disease, hypertension, peptic ulcer disease, or with cardiovascular disease. - non-benzodiazepine skeletal muscle relaxant (cyclobenzaprine) as long-term adjunctive pharmacotherapy - Ordered: cyclobenzaprine(Flexeril 10 mg oral tablet), 1 tab(s), Oral, every day at bedtime, # 30 tab(s), 0 total refill(s), Maintenance, 1 tab(s) Oral every day at bedtime, Pharmacy: [facility] [Not filled] meloxicam(Mobic 15 mg oral tablet), 1 tab(s), Oral, Daily, # 30 tab(s), 0 total refill(s), Maintenance, 1 tab(s) Oral Daily, Pharmacy: [facility] [Not filled] MRI Spine Lumbar w/o Contrast XR Spine Lumbosacral 4+ Views Referral Request 2.0 2. S hortness of breath Referral to pulmonary chronic since COVID in Aug. Patient verbalized understanding of plan of care and stated agreement. 36yo AD USAF male c/o shortness of breath with activity particularly with exercise since having COVID in August he feels like he cannot get a deep breath in please eval and treat. thank you. --This Referral Is Electronically Signed by the Ordering Provider-- Ordered: Referral Request 2.0 10/27/2024 [id number] [facility] Extracted from:Title : [facility] URI Author: MAEGAN TAVARES PA Date: 09/26/24 1. U RI - Upper respiratory infection 39 Years o ld M w/ PMH of seasonal allergies c /o cold-like sx x 2 d ay(s). VS notable for HR 114. Repeat 111. PE unremarkable. Lungs CTAB. No evidence of r espiratory distress, dehydration. M ost likely viral URI. L ow concern for PNA, bacterial sinusitis, strep pharyngitis. Tachycardia likely d/t current illness. CP?likely d/t frequent cough. - Discussed supportive care - Tylenol/NSAIDs for fever/pain - P t declined Mucinex since he has some at home - Quarters placed for 24 hrs - ED precautions given - F/u prn. Will consider empiric treatment with antibiotics if sx persist or worsen 2. D aily vape user Pt reports daily vape use. Pt aware of risks from vaping. States he has a stressful job and i s not interested in quitting today. - Recommended pt limit vaping with current URI sx - F/u prn The patient (is) World Wide Qualified. 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 Pt verbalized understanding and agreement. MAEGAN TAVARES, 1st Lt, PA-C [facility] [place] [address] Extracted from:Title: [facility] Profile Update Author: PANKAJ FLORES PA Date: 07/25/24 1. A dministrative statuses [age]-year-old male seeking updated profile. Recommend placement on 60 day profile following umbilical hernia repair restricting from push-ups and sit ups. Recommend placement on 60 day profile for suspected meniscal tear and right knee restricting from run/walk testing. - Follow-up with PCM after orthopedic evaluation The patient (is) World Wide Qualified. AM Dispo: Non-Fly Cleared for AFSC/MOS Duties: Y es with limitations Cleared for continued service: Yes Cleared for mobility duties: Yes Cleared for participation in physical fitness program: Yes with restrictions PHA/MHA/DRHA: UTD Visit deployment related: No Profile Reviewed Yes MEB in progress: No IMR/ASIMS Status: Kaylan Healy J shantanu Flores, BSC, PA-C [facility] ([facility]) Pankaj GUTIERREZ Please note that this dictation was completed with computer voice recognition software, RenéSim. Quite often unanticipated grammatical, syntax, homophones, and other interpretive errors are inadvertently transcribed by the computer software. Please disregard these errors and excuse any errors that have escaped final proofreading. If are any questions regarding documentation, please contact this provider directly. Extracted from:Title: Fam med - R leg strain Author: ADEEL GUZMAN Date: 04/08/24 1. S train of adductor muscle of thigh H&P c/w acute muscle strain vs sprain, likely right adductor group. Low suspicion of fracture from history. - ibuprofen 600 q6hr for 2 weeks, then prn - no imaging indicated at this time - flexeril 5mg po qd x5 tabs - stretching, RICE, continued use discussed with Pt - quarters today - PT profile [id number]: no walk/sprint/run - worldwide qualified, cleared for mobility - f/u in 4 weeks to assess improvement, if improving f/u prn - f/u with pcp for DAG7/PHQ9 Ordered: cyclobenzaprine(Flexeril 5 mg oral tablet), 1 tab(s), Oral, TID, # 5 tab(s), 0 total refill(s), Acute, 1 tab(s) Oral TID, Pharmacy: [facility] [Not filled] ibuprofen(ibuprofen 600 mg oral tablet), 1 tab(s), Oral, every 6 hr, # 360 tab(s), 1 total refill(s), Maintenance, 1 tab(s) Oral every 6 hr, Pharmacy: [facility] [Not filled] Addendum by PAUL IBARRA DO on April 08, 2024 13:08:54 CDT I certify that I was physically present with the resident and patient. I have discussed the diagnosis and treatment plan with the resident crup-on-zhps. I have reviewed the note and concur with the findings, assessment, and plan. Follow up as listed. All labs/imaging/consults to be followed by the ordering provider. Paul Ibarra DO, Capt, [employer], Staff Physician The patient (is ) World Wide Qualified. 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 Visit deployment related: N o Profile Reviewed MEB in progress: No IMR/ASIMS Status: [X] Green (no action), Member aware. Extracted from:Title: [facility] - Abd Pain/Knee Pain Author: MARKEL CINTRON MD Date: 03/11/24 1. K nee pain Chronic, bilateral, L>R Previous injections of L knee with some relief, is limiting his activity Repeat xr today bilaterally, previous MRI of L knee in 2016 showed OCL, will repeat imaging Suspect OCL vs more generalized OA causing majority of his sx Has done PT in past, consider sports med if no surgical indications Ordered: MRI Knee w/o Contrast Left XR Knee Weight Bearing 3+ Left XR Knee Weight Bearing 3+ Right Referral Request 2.0 - DoD 2. L ow back pain Negative SLR and no red flag symptoms (bowel/bladder changes, saddle anesthesia, weakness) make radiculopathy/spinal cord pathology unlikely. Symptoms and history most consistent with non-specific low back pain. Discussed with patient that low back pain is complicated, but that movement is the best treatment for disorder. Also discussed chronic nature of LBP, and how it may takes many months to fully resolve, if it ever does resolve fully. Has done PT and PM in past Would like repeat referral to PM, will place today If patient has any new weakness, difficulty walking, worsening numbness/tingling, or bowel/bladder issues, they should go to the emergency department 3. U mbilical pain Chronic, intermittent Sspect possible abd wall hernia given exam Will place ultrasound, if confirming for hernia, will refer to gen surg Otherwise, start PPI if no hernia Follow up if not improving Ordered: US Abdominal Wall The patient (is ) World Wide Qualified. 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 Visit deployment related: N o Profile Reviewed MEB in progress: No IMR/ASIMS Status: [X] Green (no action), Member aware. Patient is in agreement with the plan and voiced understanding. Markel Cintron MD, CAQSM ABDULLAHI Farias, Sports/Family Medicine Physician [address] COS/SGGF [facility] Faculty Physician This note was dictated using [employer] dictation software. While it was proofread for errors, there may still be grammatical and dictation errors. Extracted from:Title: Profile Update Author: ELIZABETH MELGOZA MD Date: 08/09/23 1. A dministrative statuses profile(s) a ppropriately resolved. 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 P atient i s cleared for PHA and to participate in AF fitness program without restriction. S ee attached ANNUAL PERIODIC HEATLH ASSESSMENT note. P atient d enies any removal of spleen. Denies SI/HI. L abs and radiology reports over the past year r eviewed, all abnormal results have been addressed, preventative health measures and IMR reviewed with pt l asting 15 min. Patient advised to follow up with PCM, Behavioral Health, ED/911, or [facility] as needed for continuation of care, and/or further evaluation during exacerbations of physical and/or psychological illness or injury. Appointment was completed via telephone lasting 15 min. 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 PMH AARON uses cpap, nicotine dependence, chronic pain, hx vit d deficiency. initial visit by Dr Correa Aug 2022. Hx of suicidal behavior in 2016. has hx of emotional neglect that noticeably changes his affect when discussing. multiple deployments . anticipating upcoming PCS soon in August 2023 to [facility]. Patient stopped Prozac due to sexual SE and noted benefit within a few days however with ongoing mood/hyperarousal symptoms. previously Started Lexapro but reported low adherence. previous trial of topamax for mood stability and low frustration tolerance but did not like the way he felt and he stopped using it after a very short trial. today he n otes benefit from Wellbutrin and will c ontinue 450mg. giuliano arvizu continues to have occasional anxiety that is overwhelming to the point where he feels the need to use hydroxyzine which is now 3 times per week and efficacious when used. will trial hydroxyzine to be used as sleep aide. endorses lack of benefit from ramelteon in past. in past he has used trazodone but did not like morning side effect. Ongoing stressor of FAP/cps case regarding 15yo son, that is still pending. previous concern for cluster b personality traits. not interested in nicotine cessation. monitor for appropriate adherence of med. No safety concerns present during this eval. Patient remains appropriate for outpt level of care. Plan --continue W ellbutrin 450mg XR daily for mood --continue Hydroxyzine 12.5mg - 25mg po prn tid as needed for anxiety --START hydroxyzine 25-75mg po prn qhs for sleep -recommend sleep hygiene. educated about avoiding nicotine use within 4 hours of going to sleep. 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 recommend eliminating screen time on devices within 1 hour of going to sleep. - patient to follow up with status of psychotherapy referral placed previously. will follow up with new provider at [facility] clinic in about 4- 8 weeks 1. C hronic post-traumatic stress disorder 2. D epression, unspecified Orders: buPROPion(buPROPion 150 mg/24 hours (XL) oral tablet, extended release), 3 tab(s), Oral, every 24 hr, # 270 tab(s), 1 total refill(s), Maintenance, 3 tab(s) Oral every 24 hr, Pharmacy: [facility] [Federal Rx: #270 last filled 07/04/23] hydrOXYzine(hydrOXYzine hydrochloride 25 mg oral tablet), 1 tab(s), Oral, TID, PRN anxiety, may take 1 tablet by mouth as needed for anxiety up to three times per day. also may take 1 - 3 tablets by mouth at bedtime for sleep as neeeded., # 60 tab(s), 2 total refill(s), Acute, 07/04/2024, 1 tab(s) Oral TID,P... Extracted from:Title: Office Clinic Note - Knee sprain/Vasectomy Author: SARA BRADLEY NP Date: 06/07/23 1. C ontraception care education done Referred to urology Ordered: diclofenac topical(diclofenac 1% topical gel), See instructions, Apply 2 grams (upper extremities) or 4 grams (lower extremities) to affected area topically four times daily as needed for pain. Max total body dose of 32 grams per day, # 100 g, 0 total refill(s), Maintenance, Apply 2 grams (upper e... XR Knee Weight Bearing 3+ Left Referral Request 2.0 2. 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 PMH AARON uses cpap, nicotine dependence, chronic pain, hx vit d deficiency. initial visit by Dr Correa Aug 2022. Hx of suicidal behavior in 2016. has hx of emotional neglect that noticeably changes his affect when discussing. multiple d eployments . anticipating upcoming P CS soon. Patient stopped Prozac due to sexual SE and noted benefit within a few days however with ongoing mood/hyperarousal symptoms. previously Started Lexapro but reported low adherence. previous trial of topamax for mood stability and low frustration tolerance b ut did not like the way he felt and he stopped using it after a very short trial. Has noted benefit from Wellbutrin and will increase to 450mg as he continues to have breakthrough anxiety, ongoing irritability. Previously Dr Correa was concerned that bupropion was increasing irritability, though ongoing daytime work related and marital stressors seem to precipitate irritability. Ongoing stressor of FAP/cps case, that is still pending. p revious concern for arlin hinton b personality traits. Discussed risk benefits and alternatives and patient amenable to med changes in bupropion. not interested in nicotine cessation. monitor for appropriate adherence of med. No safety concerns present during this eval. Patient remains appropriate for outpt level of care. plan medications --INCREASe to W ellbutrin 450mg XR daily for mood --continue Hydroxyzine 12.5mg - 25mg po prn tid as needed for anxiety seek out psychotherapy, referral placed rtc n ov 29 at 0900 in person. 1. C hronic post-traumatic stress disorder 2. D epression, unspecified Orders: buPROPion(buPROPion 150 mg/24 hours (XL) oral tablet, extended release), 3 tab(s), Oral, every 24 hr, # 90 tab(s), 3 total refill(s), Maintenance, 3 tab(s) Oral every 24 hr, Pharmacy: [facility] #[id number] [External Rx] Extracted from:Title: [facility] 7W Psychiatry follow up #1 Author: YOLA FELIX Date: 04/20/23 This is a 37 yo MSGT AD AF with ppsyhx of PTSD, MDD. 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 PMH AARON uses cpap, nicotine dependence, chronic pain, hx vit d deficiency. initial visit by Dr Correa Aug 2022. Hx of suicidal behavior in 2015. multiple d eployments Patient stopped Prozac due to sexual SE and noted benefit within a few days however with ongoing mood/hyperarousal symptoms. previously Started Lexapro but reported low adherence. previous trial of topamax for mood stability and low frustration tolerance b ut did not like the way he felt and he stopped using it after a very short trial. Has noted benefit from Wellbutrin and will increase to 450mg as he continues to have breakthrough anxiety, ongoing irritability. Previously Dr Correa was concerned that bupropion was increasing irritability, though ongoing daytime work related stressors that seem to precipitate irritability. Ongoing stressor of FAP/cps case, that is still pending. Transition to marriage in summer 2022. Patient shares cognitive distortions and externalization and has hx of emotional neglect that noticeably changes his affect when discussing. Has cluster b personality traits. Discussed risk benefits and alternatives and patient amenable to med changes. not interested in nicotine cessation. Will discontinue Trazodone and Ramelteon as he is no longer having trouble with sleep with onset of cpap and he had not been taking. No safety concerns present during this initial eval. Patient remains appropriate for outpt level of care. plan medications --increase to Wellbutrin 450mg XR daily for mood --continue Hydroxyzine 25mg po prn tid as needed for anxiety --discontinue Trazodone 50-100mg PRN for insomnia --discontinue Ramelteon 8mg for insomnia --discontinue Topomax 25mg daily for irritability/RUBIN seek out psychotherapy, placed referral 1. D epression, unspecified 2. C hronic post-traumatic stress disorder Ordered: Referral Request 2.0 Orders: buPROPion(buPROPion 150 mg/24 hours (XL) oral tablet, extended release), 3 tab(s), Oral, every 24 hr, # 90 tab(s), 3 total refill(s), Maintenance, 3 tab(s) Oral every 24 hr, Pharmacy: [facility] #[id number] [External Rx] hydrOXYzine(hydrOXYzine hydrochloride 25 mg oral tablet), 1 tab(s), Oral, TID, PRN as needed for anxiety, # 60 tab(s), 2 total refill(s), Acute, 04/20/2024, 1 tab(s) Oral TID,PRN:as needed for anxiety, Pharmacy: [facility] #[id number] [External Rx] Extracted from:Title: [facility], 6T, MultiD, Psychiatry Follow Up Note Author: Kraig Correa Date: 01/10/23 This is a 37 yo 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 Current dx impression concerning for PTSD and also meets criteria for MDD. He is p harmacologically treatment naive. W ill start Prozac per his stated preference when discussing initial agents with indications to aid his treatment. Someone else is prescribing him hydroxyzine which he uses and finds somewhat helpful. Gabapentin would be good agent to explore in future in lieu of Hydroxyzine but currently patient feels it is helpful enough to not merit changing. Today sleep is primary issue so will start Trazodone. Discussed the risks, benefits, and alternatives and patient agreeable to trial. Will titrate prozac due to partial response. [1] Patient stopped Prozac due to sexual SE and noted benefit within a few days however with ongoing mood/hyperarousal symptoms. Instead of salvaging this medication that was otherwise helpful will try another agent particularly as patient has been off for 6 days (acknowledging long half life). Started Lexapro at [place] but reporting low adherence. As patient primary wanting to work on motivation and low energy, will trial alternative medication with more dopaminergic/nonepienphric tone like Wellbutrin. We've now titrated to 300mg but not titrating further due to immergence of increased irritability. Wanting to continue agent but ongoing low frustration tolerance so will add Topomax (pt also endorsing frequent RUBIN). Discussed risk benefits and alternatives and patient amenable to starting. Will continue Hydroxyzine Trazodone and Ramelteon (not started yet). Sleep consult approved, pending actual appt. Employed [place] approach to consideration of psychosocial stressors. No safety concerns present during this initial eval. Patient remains appropriate for outpt level of care. 1. D epression, unspecified --Continue Wellbutrin 300mg XR daily 2. P ost-traumatic stress disorder, chronic --Continue PRN Hydroxyzine --Continue Trazodone 50-100mg PRN for insomnia --Start Rameltino 8mg for insomnia --Start Topomax 2 5mg daily for irritability/RUBIN Orders: topiramate(topiramate 25 mg oral capsule, extended release), 1 cap(s), Oral, Daily, take one tab at night, # 7 cap(s), 0 total refill(s), Maintenance, 1 cap(s) Oral Daily,Instr:take one tab at night, Pharmacy: [facility][id number] [External Rx] Prognosis: Fair Benefits, Risks, Alternatives Discussed: Yes Treatment Plan: Referral to individual, family or group therapy Number of Visits Expected: Other: TBD Target Symptoms: Anxiety Goals of Treatment: Decrease in target symptoms, Other: Methods of Monitoring Outcomes: Other: TBD Evaluation Type: Time based Goals of Treatment #1: Other: Deferred Treatment Planning Requirements: 2) Patient agrees to attend appointments, engage in treatment, discuss any concerns in order to meet treatment goals, 3) Provider will leverage patient strengths and limit potential barriers to treatment Extracted from:Title: [facility], 6T, MultiD, Psychiatry Follow Up Note Author: Kraig Correa Date: 12/20/22 T his is a 37 yo 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 Current dx impression concerning for PTSD and also meets criteria for MDD. He is p harmacologically treatment naive. W ill start Prozac per his stated preference when discussing initial agents with indications to aid his treatment. Someone else is prescribing him hydroxyzine which he uses and finds somewhat helpful. Gabapentin would be good agent to explore in future in lieu of Hydroxyzine but currently patient feels it is helpful enough to not merit changing. Today sleep is primary issue so will start Trazodone. Discussed the risks, benefits, and alternatives and patient agreeable to trial. Will titrate prozac due to partial response. [1] Patient stopped Prozac due to sexual SE and noted benefit within a few days however with ongoing mood/hyperarousal symptoms. Instead of salvaging this medication that was otherwise helpful will try another agent particularly as patient has been off for 6 days (acknowledging long half life). Started Lexapro at but reporting low adherence. As patient primary wanting to work on motivation and low energy, will trial alternative medication with more dopaminergic/nonepienphric tone like Wellbutrin. Given benefit of PRN Hydroxyzine, will increase dose to reflect how patient is actually taking it.[1] Wellbutrin has been helpful for energy during day but not titrating today due to ongoing anxiety/irritability symptoms. Instead will titrate PRN traz and add ramelteon as sleep is foremost concern today. Topomax/Prazosin will be next step for hyperarousal sx although not nightmare burden. M y sleep consult was rejected so submitted again today with extensive justification. Employed TX approach to consideration of psychosocial stressors. No safety concerns present during this initial eval. Patient remains appropriate for outpt level of care. 1. P ost-traumatic stress disorder, chronic --Continue PRN Hydroxyzine --Continue Trazodone 50-100mg PRN for insomnia --Start Rameltino 8mg for insomnia 2. M ajor depressive disorder, recurrent, moderate --Continue Wellbutrin 300mg XR daily Orders: ramelteon(ramelteon 8 mg oral tablet), 1 tab(s), Oral, every day at bedtime, # 30 tab(s), 3 total refill(s), Maintenance, 1 tab(s) Oral every day at bedtime, Pharmacy: [facility] #[id number] [External Rx] traZODone(traZODone 50 mg oral tablet), 1 tab(s), Oral, every day at bedtime, PRN sleep, take 2 tabs at night for insomnia, # 60 tab(s), 2 total refill(s), Maintenance, 1 tab(s) Oral every day at bedtime,PRN:sleep,Instr:take 2 tabs at night for insomnia, Pharmacy: [facility] #[id number] [E Referral Request 2.0 Prognosis: Fair Benefits, Risks, Alternatives Discussed: Yes Treatment Plan: Referral to individual, family or group therapy Number of Visits Expected: Other: TBD Target Symptoms: Anxiety Goals of Treatment: Decrease in target symptoms, Other: Methods of Monitoring Outcomes: Other: TBD Evaluation Type: Time based Goals of Treatment #1: Other: Deferred Treatment Planning Requirements: 2) Patient agrees to attend appointments, engage in treatment, discuss any concerns in order to meet treatment goals, 3) Provider will leverage patient strengths and limit potential barriers to treatment Extracted from:Title: [facility], 6T, MultiD, Psychiatry Follow Up Note Author: Kraig Correa Date: 11/22/22 This is a 37 yo 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 Current dx impression concerning for PTSD and also meets criteria for MDD. He is p harmacologically treatment naive. W ill start Prozac per his stated preference when discussing initial agents with indications to aid his treatment. Someone else is prescribing him hydroxyzine which he uses and finds somewhat helpful. Gabapentin would be good agent to explore in future in lieu of Hydroxyzine but currently patient feels it is helpful enough to not merit changing. Today sleep is primary issue so will start Trazodone. Discussed the risks, benefits, and alternatives and patient agreeable to trial. Will titrate prozac due to partial response. [1] Patient stopped Prozac due to sexual SE and noted benefit within a few days however with ongoing mood/hyperarousal symptoms. Instead of salvaging this medication that was otherwise helpful will try another agent particularly as patient has been off for 6 days (acknowledging long half life). Started Lexapro at [facility] but reporting low adherence. As patient primary wanting to work on motivation and low energy, will trial alternative medication with more dopaminergic/nonepienphric tone like Wellbutrin. Given benefit of PRN Hydroxyzine, will increase dose to reflect how patient is actually taking it.[1] Partial beenfit from Wellbutrin but ongoign sx so will titrate. Still waiting for sleep study. Put in order as well. Patient will call [facility] line to check status. Employed [place] approach to consideration of psychosocial stressors. No safety concerns present during this initial eval. Patient remains appropriate for outpt level of care. 1. P ost-traumatic stress disorder, chronic --Continue PRN Hydroxyzine --Continue Trazodone 50-100mg PRN for insomnia 2. M ajor depressive disorder, recurrent, moderate --Stop Lexapro --Inc to Wellbutrin 300mg XR daily Orders: buPROPion(buPROPion 300 mg/24 hours (XL) oral tablet, extended release), 1 tab(s), Oral, every 24 hr, # 30 tab(s), 3 total refill(s), Maintenance, 1 tab(s) Oral every 24 hr, Pharmacy: [facility] #[id number] [External Rx] Prognosis: Fair Benefits, Risks, Alternatives Discussed: Yes Treatment Plan: Referral to individual, family or group therapy Number of Visits Expected: Other: TBD Target Symptoms: Anxiety Goals of Treatment: Decrease in target symptoms, Other: Methods of Monitoring Outcomes: Other: TBD Evaluation Type: Time based Goals of Treatment #1: Other: Deferred Treatment Planning Requirements: 2) Patient agrees to attend appointments, engage in treatment, discuss any concerns in order to meet treatment goals, 3) Provider will leverage patient strengths and limit potential barriers to treatment Extracted from:Title: [facility], 6T, MultiD, Psychiatry Follow Up Note Author: Kraig Correa Date: 11/01/22 This is a 37 yo 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 Current dx impression concerning for PTSD and also meets criteria for MDD. He is p harmacologically treatment naive. W ill start Prozac per his stated preference when discussing initial agents with indications to aid his treatment. Someone else is prescribing him hydroxyzine which he uses and finds somewhat helpful. Gabapentin would be good agent to explore in future in lieu of Hydroxyzine but currently patient feels it is helpful enough to not merit changing. Today sleep is primary issue so will start Trazodone. Discussed the risks, benefits, and alternatives and patient agreeable to trial. Will titrate prozac due to partial response. [1] Patient stopped Prozac due to sexual SE and noted benefit within a few days however with ongoing mood/hyperarousal symptoms. Instead of salvaging this medication that was otherwise helpful will try another agent particularly as patient has been off for 6 days (acknowledging long half life). Started Lexapro at [facility] but reporting low adherence. As patietn primary wanting to work on motivation and low energy, will trial alternative medication with more dopaminergic/nonepienphric tone like Wellbutrin. Given benefit of PRN Hydroxyzine, will increase dose to reflect how patient is actually taking it. Still waiting for sleep study. Messaged PCM to help expedite and encouraged patient to call [facility] line to check status. No safety concerns present during this initial eval. Patient remains appropriate for outpt level of care. We agree to meet in person for out next appt 11/22 at 1:00AM 1. M ajor depressive disorder, recurrent, moderate --Stop Lexapro --Start Wellbutrin 150mg XR daily 2. P ost-traumatic stress disorder, chronic --Continue PRN Hydroxyzine --Continue Trazodone 50-100mg PRN for insomnia Orders: hydrOXYzine(hydrOXYzine hydrochloride 25 mg oral tablet), 1 tab(s), Oral, Daily, # 60 tab(s), 2 total refill(s), Acute, 11/02/2025, 1 tab(s) Oral Daily, Pharmacy: [facility] #[id number] [External Rx] buPROPion(Wellbutrin XL 150 mg/24 hours oral tablet, extended release), 1 tab(s), Oral, every 24 hr, # 30 tab(s), 0 total refill(s), Maintenance, 1 tab(s) Oral every 24 hr, Pharmacy: [facility] #[id number] [External Rx] Prognosis: Fair Benefits, Risks, Alternatives Discussed: Yes Treatment Plan: Referral to individual, family or group therapy Number of Visits Expected: Other: TBD Target Symptoms: Anxiety Goals of Treatment: Decrease in target symptoms, Other: Methods of Monitoring Outcomes: Other: TBD Evaluation Type: Time based Goals of Treatment #1: Other: Deferred Treatment Planning Requirements: 2) Patient agrees to attend appointments, engage in treatment, discuss any concerns in order to meet treatment goals, 3) Provider will leverage patient strengths and limit potential barriers to treatment Extracted from:Title: [facility], 6T, MultiD, Psychiatry Follow Up Note Author: Kraig Correa [place] Date: 10/04/22 This is a 37 yo 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 Current dx impression concerning for PTSD and also meets criteria for MDD. He is p harmacologically treatment naive. W ill start Prozac per his stated preference when discussing initial agents with indications to aid his treatment. Someone else is prescribing him hydroxyzine which he uses and finds somewhat helpful. Gabapentin would be good agent to explore in future in lieu of Hydroxyzine but currently patient feels it is helpful enough to not merit changing. Today sleep is primary issue so will start Trazodone. Discussed the risks, benefits, and alternatives and patient agreeable to trial. Will titrate prozac due to partial response. [1] Patient stopped Prozac due to sexual SE and noted benefit within a few days however with ongoing mood/hyperarousal symptoms. Instead of salvaging this medication that was otherwise helpful will try another agent particularly as patient has been off for 6 days (acknowledging long half life). No safety concerns present during this initial eval. Patient remains appropriate for outpt level of care. W e agree to meet in person for out next appt 11/01 at 11:00AM 1. D epression, unspecified --Stop Prozac --Start Lexapro 2.5mg to increase to 5mg after 3-4 days if tolerated 2. P ost-traumatic stress disorder, chronic --Start Lexapro 2.5mg to increase to 5mg after 3-4 days if tolerated --Continue PRN Hydroxyzine --Continue Trazodone 50-100mg PRN for insomnia Orders: hydrOXYzine(hydrOXYzine hydrochloride 10 mg oral tablet), See Instructions, take 1/2 to 1 tablet by mouth twice a day as needed for acute anxiety. May take 1/2 to 3 tablets at bedtime as needed for sleep, # 90 tab(s), 1 total refill(s), Maintenance, take 1/2 to 1 tablet by mouth twice a day as needed for acu... escitalopram(Lexapro 5 mg oral tablet), 2 tab(s), Oral, Daily, Take one half tab (2.5mg) for 3-4 days, then increase to 5mg daily, # 60 tab(s), 0 total refill(s), Maintenance, 2 tab(s) Oral Daily,Instr:Take one half tab (2.5mg) for 3-4 days, then increase to 5mg daily, [facility]acy: [facility]. No qualifying data available. Extracted from:Title: [facility], 6T, MultiD, Psychiatry Follow Up Note Author: Kraig Correa Date: 09/20/22 This is a 37 yo 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 Current dx impression concerning for PTSD and also meets criteria for MDD. He is p harmacologically treatment naive. W ill start Prozac per his stated preference when discussing initial agents with indications to aid his treatment. Someone else is prescribing him hydroxyzine which he uses and finds somewhat helpful. Gabapentin would be good agent to explore in future in lieu of Hydroxyzine but currently patient feels it is helpful enough to not merit changing. [1] Today sleep is primary issue so will start Trazodone. Discussed the risks, benefits, and alternatives and patient agreeable to trial. Will titrate prozac due to partial response. No safety concerns present during this initial eval. Patient remains appropriate for outpt level of care. 1. P ost-traumatic stress disorder, chronic --Increase to Prozac 30mg daily for PTSD/Mood --Start Trazodone 50-100mg at night PRN for insomnia 2. M ajor depressive disorder, recurrent, moderate --Increase to Prozac 30mg daily for PTSD/Mood --Start Trazodone 50-100mg at night PRN for insomnia --Continue Hydroxyzine 10mg TID PRN for anxiety Orders: FLUoxetine(FLUoxetine 10 mg oral capsule), 1 cap(s), Oral, Daily, Take three tabs (30mg) for mood, # 90 cap(s), 2 total refill(s), Maintenance, 1 cap(s) Oral Daily,Instr:Take three tabs (30mg) for mood, Pharmacy: [facility] #[id number] [External Rx] traZODone(traZODone 50 mg oral tablet), 1 tab(s), Oral, every day at bedtime, PRN sleep, take 1-2 tabs at night for insomnia, # 60 tab(s), 1 total refill(s), Maintenance, 1 tab(s) Oral every day at bedtime,PRN:sleep,Instr:take 1-2 tabs at night for insomnia, Pharmacy: [facility]... Prognosis: Fair Benefits, Risks, Alternatives Discussed: Yes Treatment Plan: Referral to individual, family or group therapy Number of Visits Expected: Other: TBD Target Symptoms: Anxiety Goals of Treatment: Decrease in target symptoms, Other: Methods of Monitoring Outcomes: Other: TBD Evaluation Type: Time based Goals of Treatment #1: Other: Deferred Treatment Planning Requirements: 2) Patient agrees to attend appointments, engage in treatment, discuss any concerns in order to meet treatment goals, 3) Provider will leverage patient strengths and limit potential barriers to treatment Extracted from:Title: [facility], , [facility], Psychiatry Inital Visit Note Author: Kraig Correa Date: 08/09/22 This is a 37 yo 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 Current dx impression concerning for PTSD and also meets criteria for MDD. He is p harmacologically treatment naive. W ill start Prozac per his stated preference when discussing initial agents with indications to aid his treatment. Someone else is prescribing him hydroxyzine which he uses and finds somewhat helpful. Gabapentin would be good agent to explore in future in lieu of Hydroxyzine but currently patient feels it is helpful enough to not merit changing. No safety concerns present during this initial eval. Patient remains appropriate for outpt level of care. 1. P ost-traumatic stress disorder, chronic --Prozac 10mg daily (titrated to 20mg after one week) 2. D epression, unspecified --Prozac 10mg daily (titrated to 20mg after one week) Orders: FLUoxetine(PROzac 10 mg oral capsule), See Instructions, Oral, take one capsule by mouth every day for 7 days, then take two capsules every day, # 53 cap(s), 3 total refill(s), Maintenance, 30 days, take one capsule by mouth every day for 7 days, then take two capsules every day, Pharmacy:... Prognosis: Fair Benefits, Risks, Alternatives Discussed: Yes Treatment Plan: Referral to individual, family or group therapy Number of Visits Expected: Other: TBD Target Symptoms: Anxiety Goals of Treatment: Decrease in target symptoms, Other: Methods of Monitoring Outcomes: Other: TBD Evaluation Type: Time based Goals of Treatment #1: Other: Deferred Treatment Planning Requirements: 2) Patient agrees to attend appointments, engage in treatment, discuss any concerns in order to meet treatment goals, 3) Provider will leverage patient strengths and limit potential barriers to treatment Extracted from:Title: Office Clinic Note Author: DIXON CAMPBELL MD Date: 07/14/22 Accessory navicular Ordered: CT Lower Extremity w/o Contrast Right Acquired pes planus Ordered: CT Lower Extremity w/o Contrast Right 1. Reviewed name, , medications and radiographs with patient. 2. Discussed non-surgical i ntervention with patient to include inserts, bracing, physical therapy to include ROM, stretching, balancing and strengthening exercises, rest, ice, elevation, compression, therapeutic injections as well as the expected a ctivity level. Patient confirms understanding. 3. The patient has been instructed to continue activity to tolerance 4. He will RTC for CT review of the right foot and orthotics f/u Extracted from:Title: Office Clinic Note Author: MARIE PINON NP Date: 05/12/22 1. F oot pain 36yo AD [facility] male with arch foot pain x 2 months; flat foot present; r/o fracture; thank you. 36yo AD [place] male with arch foot pain x 2 months; flat foot present; ; please eval and treat. thank you. --This Referral Is Electronically Signed by the Ordering Provider-- Renewal on Mobic. If symptoms worsen or do not improve return to clinic or ER for reevaluation. Desires a profile for not running, 30 days recommended. Ordered: XR Foot Weight Bearing 3+ Right Referral Request 2.0 2. S hortness of breath 02/27/22 encounter for Shortness of breath; appointment was supposed to be for 9/18 /2 but [place] and had to reschedule. CXR today. Keep pulmonary referral a ppointment already scheduled. Patient verbalized understanding of plan of care and stated agreement. R eferral to pulmonary chronic since COVID in Aug. Patient verbalized understanding of plan of care and stated agreement. 36yo AD [employer] male c/o shortness of breath with activity particularly with exercise since having COVID in August he feels like he cannot get a deep breath in please eval and treat. thank you. 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 [place] moyer is cleared for PHA and to participate in AF fitness program without restriction. S ee attached ANNUAL PERIODIC HEATLH ASSESSMENT note. [place] moyer denied having a splenectomy in the past. [place] moyer denies SI/HI. A vailable labs and radiology reports since last Annual PHA were reviewed and addressed if not addressed prior to this visit. [place] moyer states priority responses of occasional chest pain, dizziness, and abnormal heart rate especially post COVID and exercising; denied chest pain today, palpitations, SOB, ALMENDAREZ, syncope, nonradiating, dizziness; advised to go to emergency room; and to follow-up with PCM; verbalized understanding. [place] moyer advised to follow-up with PCM for post COVID symptoms (ie SOB, ALMENDAREZ, palpitations, chest pain, cough); if symptoms worsen, go to emergency room; verbalized understanding. Member reported travelling to [facility] for about 10 days on leave and advised to be seen by PCM or specialty provider; emergency room precautions g iven p rior to leaving; verbalized understanding. Member was advised to follow-up with pulmonology and PCM as recommended; verbalized understanding. [place] moyer was reminded to obtain the HIV lab draw when able. ?Appointment was completed via telephone, and lasted 5-10 min. Ordered: HIV-1/O/2 EPI [id number] Repository Sample EPI [id number] Extracted from:Title: Office Clinic Note Author: MARIE PINON NP Date: 02/27/22 1. L ow back pain 36yo AD [employer] male with acute on chronic low back pain needs x-ray and MRI evaluation; lumbar pain radiating down left leg to behind knee no trauma. prior h/o RFA bilaterally. x-ray and MRI patient given written instruction sheet to call for MRI scheduling referral to physical therapy; in between to his team on [place] profile f or no running, push ups, pull ups for 30 days; referral to physical therapy; will refer to pain management once MRI returned. Have prescribed M obic t o be used o nce daily and Flexeril nightly as needed for acute flare. D iscussed sedative side effects of Flexeril. Have also encouraged him to engage in flexibility training Have also placed consult with physical therapy for evaluation through back classes to help with patient education. P atient has no red flags per history or exam. Have advised to return to clinic if symptoms persist or worsen. P atient verbalized understanding and agrees with plan. Lower back pain: Discussed associated risk factor strenuous work; patient has/not signs or symptoms red flags. Ddx includes but not limited to radiculopathy vs lumbar spinal stenosis vs Osteoarthritis - Will order MRI given symptoms of spinal cord compression,low risk of metastatic cancer or infection, radiculopathy can not attributable to a single nerve root level. -- Conservative therapy with PT - Pain control with NSAIDS pt denies allergy or other intolerance, chronic kidney disease, hypertension, peptic ulcer disease, or with cardiovascular disease. - non-benzodiazepine skeletal muscle relaxant (cyclobenzaprine) as long-term adjunctive pharmacotherapy - Ordered: cyclobenzaprine(Flexeril 10 mg oral tablet), 1 tab(s), Oral, every day at bedtime, # 30 tab(s), 0 total refill(s), Maintenance, 1 tab(s) Oral every day at bedtime, Pharmacy: [facility] [Not filled] meloxicam(Mobic 15 mg oral tablet), 1 tab(s), Oral, Daily, # 30 tab(s), 0 total refill(s), Maintenance, 1 tab(s) Oral Daily, Pharmacy: [facility] [Not filled] MRI Spine Lumbar w/o Contrast XR Spine Lumbosacral 4+ Views Referral Request 2.0 2. S hortness of breath Referral to pulmonary chronic since COVID in Aug. Patient verbalized understanding of plan of care and stated agreement. 36yo AD [employer] male c/o shortness of breath with activity particularly with exercise since having COVID in August he feels like he cannot get a deep breath in please eval and treat. thank you. --This Referral Is Electronically Signed by the Ordering Provider-- Ordered: Referral Request 2.0 10/27/2024 [id number] Assessment and Plan Extracted from:Title : [facility] URI Author: MAEGAN TAVARES PA Date: 09/26/24 1. U RI - Upper respiratory infection 39 Years o ld M w/ PMH of seasonal allergies c /o cold-like sx x 2 d ay(s). VS notable for HR 114. Repeat 111. PE unremarkable. Lungs CTAB. No evidence of r espiratory distress, dehydration. M ost likely viral URI. L ow concern for PNA, bacterial sinusitis, strep pharyngitis. Tachycardia likely d/t current illness. CP?likely d/t frequent cough. - Discussed supportive care - Tylenol/NSAIDs for fever/pain - P t declined Mucinex since he has some at home - Quarters placed for 24 hrs - ED precautions given - F/u prn. Will consider empiric treatment with antibiotics if sx persist or worsen 2. D aily vape user Pt reports daily vape use. Pt aware of risks from vaping. States he has a stressful job and i s not interested in quitting today. - Recommended pt limit vaping with current URI sx - F/u prn The patient (is) World Wide Qualified. 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 Pt verbalized understanding and agreement. MAEGAN TAVARES, 1st Lt, PA-C [facility] [place] [address] Extracted from:Title: [facility] Profile Update Author: PANKAJ FLORES PA Date: 07/25/24 1. A dministrative statuses [age]-year-old male seeking updated profile. Recommend placement on 60 day profile following umbilical hernia repair restricting from push-ups and sit ups. Recommend placement on 60 day profile for suspected meniscal tear and right knee restricting from run/walk testing. - Follow-up with PCM after orthopedic evaluation The patient (is) World Wide Qualified. AM Dispo: Non-Fly Cleared for AFSC/MOS Duties: Y es with limitations Cleared for continued service: Yes Cleared for mobility duties: Yes Cleared for participation in physical fitness program: Yes with restrictions PHA/MHA/DRHA: UTD Visit deployment related: No Profile Reviewed Yes MEB in progress: No IMR/ASIMS Status: Y christian Healy J shantanu Flores, BSC, PA-C [facility] ([facility]) Pankaj GUTIERREZ Please note that this dictation was completed with computer voice recognition software, RenéSim. Quite often unanticipated grammatical, syntax, homophones, and other interpretive errors are inadvertently transcribed by the computer software. Please disregard these errors and excuse any errors that have escaped final proofreading. If are any questions regarding documentation, please contact this provider directly. Extracted from:Title: Fam med - R leg strain Author: ADEEL GUZMAN Date: 04/08/24 1. S train of adductor muscle of thigh H&P c/w acute muscle strain vs sprain, likely right adductor group. Low suspicion of fracture from history. - ibuprofen 600 q6hr for 2 weeks, then prn - no imaging indicated at this time - flexeril 5mg po qd x5 tabs - stretching, RICE, continued use discussed with Pt - quarters today - PT profile [id number]: no walk/sprint/run - worldwide qualified, cleared for mobility - f/u in 4 weeks to assess improvement, if improving f/u prn - f/u with pcp for DAG7/PHQ9 Ordered: cyclobenzaprine(Flexeril 5 mg oral tablet), 1 tab(s), Oral, TID, # 5 tab(s), 0 total refill(s), Acute, 1 tab(s) Oral TID, Pharmacy: [facility] [Not filled] ibuprofen(ibuprofen 600 mg oral tablet), 1 tab(s), Oral, every 6 hr, # 360 tab(s), 1 total refill(s), Maintenance, 1 tab(s) Oral every 6 hr, Pharmacy: [facility] [Not filled] Addendum by PAUL IBARRA DO on April 08, 2024 13:08:54 CDT I certify that I was physically present with the resident and patient. I have discussed the diagnosis and treatment plan with the resident [id number]. I have reviewed the note and concur with the findings, assessment, and plan. Follow up as listed. All labs/imaging/consults to be followed by the ordering provider. Paul Ibarra DO, Capt, [employer], Staff Physician The patient (is ) World Wide Qualified. 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 Visit deployment related: N o Profile Reviewed MEB in progress: No IMR/ASIMS Status: [X] Green (no action), Member aware. Extracted from:Title: [facility] - Abd Pain/Knee Pain Author: MARKEL CINTRON MD Date: 03/11/24 1. K nee pain Chronic, bilateral, L>R Previous injections of L knee with some relief, is limiting his activity Repeat xr today bilaterally, previous MRI of L knee in 2016 showed OCL, will repeat imaging Suspect OCL vs more generalized OA causing majority of his sx Has done PT in past, consider sports med if no surgical indications Ordered: MRI Knee w/o Contrast Left XR Knee Weight Bearing 3+ Left XR Knee Weight Bearing 3+ Right Referral Request 2.0 - [facility] 2. L ow back pain Negative SLR and no red flag symptoms (bowel/bladder changes, saddle anesthesia, weakness) make radiculopathy/spinal cord pathology unlikely. Symptoms and history most consistent with non-specific low back pain. Discussed with patient that low back pain is complicated, but that movement is the best treatment for disorder. Also discussed chronic nature of LBP, and how it may takes many months to fully resolve, if it ever does resolve fully. Has done PT and PM in past Would like repeat referral to PM, will place today If patient has any new weakness, difficulty walking, worsening numbness/tingling, or bowel/bladder issues, they should go to the emergency department 3. U mbilical pain Chronic, intermittent Sspect possible abd wall hernia given exam Will place ultrasound, if confirming for hernia, will refer to gen surg Otherwise, start PPI if no hernia Follow up if not improving Ordered: US Abdominal Wall The patient (is ) World Wide Qualified. 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 Visit deployment related: N o Profile Reviewed MEB in progress: No IMR/ASIMS Status: [X] Green (no action), Member aware. Patient is in agreement with the plan and voiced understanding. Markel Cintron MD, CAQSM ABDULLAHI Farias, Sports/Family Medicine Physician [address] [facility] Faculty Physician This note was dictated using [employer] dictation software. While it was proofread for errors, there may still be grammatical and dictation errors. Extracted from:Title: Profile Update Author: ELIZABETH MELGOZA MD Date: 08/09/23 1. A dministrative statuses profile(s) a ppropriately resolved. 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 P atient i s cleared for PHA and to participate in AF fitness program without restriction. S ee attached ANNUAL PERIODIC HEATLH ASSESSMENT note. P atient d enies any removal of spleen. Denies SI/HI. L abs and radiology reports over the past year r arabellawed, all abnormal results have been addressed, preventative health measures and IMR reviewed with pt shira asting 15 min. Patient advised to follow up with PCM, Behavioral Health, ED/911, or [facility] as needed for continuation of care, and/or further evaluation during exacerbations of physical and/or psychological illness or injury. Appointment was completed via telephone lasting 15 min. 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 PMH AARON uses cpap, nicotine dependence, chronic pain, hx vit d deficiency. initial visit by Dr Correa Aug 2022. Hx of suicidal behavior in 2015. has hx of emotional neglect that noticeably changes his affect when discussing. multiple deployments . anticipating upcoming PCS soon in August 2023 to [facility]. Patient stopped Prozac due to sexual SE and noted benefit within a few days however with ongoing mood/hyperarousal symptoms. previously Started Lexapro but reported low adherence. previous trial of topamax for mood stability and low frustration tolerance but did not like the way he felt and he stopped using it after a very short trial. today he n otes benefit from Wellbutrin and will c ontinue 450mg. giuliano arvizu continues to have occasional anxiety that is overwhelming to the point where he feels the need to use hydroxyzine which is now 3 times per week and efficacious when used. will trial hydroxyzine to be used as sleep aide. endorses lack of benefit from ramelteon in past. in past he has used trazodone but did not like morning side effect. Ongoing stressor of FAP/cps case regarding 15yo son, that is still pending. previous concern for cluster b personality traits. not interested in nicotine cessation. monitor for appropriate adherence of med. No safety concerns present during this eval. Patient remains appropriate for outpt level of care. Plan --continue W ellbutrin 450mg XR daily for mood --continue Hydroxyzine 12.5mg - 25mg po prn tid as needed for anxiety --START hydroxyzine 25-75mg po prn qhs for sleep -recommend sleep hygiene. educated about avoiding nicotine use within 4 hours of going to sleep. 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 recommend eliminating screen time on devices within 1 hour of going to sleep. - patient to follow up with status of psychotherapy referral placed previously. will follow up with new provider at [facility] in about 4- 8 weeks 1. C hronic post-traumatic stress disorder 2. D epression, unspecified Orders: buPROPion(buPROPion 150 mg/24 hours (XL) oral tablet, extended release), 3 tab(s), Oral, every 24 hr, # 270 tab(s), 1 total refill(s), Maintenance, 3 tab(s) Oral every 24 hr, Pharmacy: [facility] [Federal Rx: #270 last filled 07/04/23] hydrOXYzine(hydrOXYzine hydrochloride 25 mg oral tablet), 1 tab(s), Oral, TID, PRN anxiety, may take 1 tablet by mouth as needed for anxiety up to three times per day. also may take 1 - 3 tablets by mouth at bedtime for sleep as neeeded., # 60 tab(s), 2 total refill(s), Acute, 07/04/2024, 1 tab(s) Oral TID,P... Extracted from:Title: Office Clinic Note - Knee sprain/Vasectomy Author: SARA BRADLEY NP Date: 06/07/23 1. C ontraception care education done Referred to urology Ordered: diclofenac topical(diclofenac 1% topical gel), See instructions, Apply 2 grams (upper extremities) or 4 grams (lower extremities) to affected area topically four times daily as needed for pain. Max total body dose of 32 grams per day, # 100 g, 0 total refill(s), Maintenance, Apply 2 grams (upper e... XR Knee Weight Bearing 3+ Left Referral Request 2.0 2. 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 PMH AARON uses cpap, nicotine dependence, chronic pain, hx vit d deficiency. initial visit by Dr Correa Aug 2022. Hx of suicidal behavior in 2015. has hx of emotional neglect that noticeably changes his affect when discussing. multiple d eployments . anticipating upcoming P CS soon. Patient stopped Prozac due to sexual SE and noted benefit within a few days however with ongoing mood/hyperarousal symptoms. previously Started Lexapro but reported low adherence. previous trial of topamax for mood stability and low frustration tolerance b ut did not like the way he felt and he stopped using it after a very short trial. Has noted benefit from Wellbutrin and will increase to 450mg as he continues to have breakthrough anxiety, ongoing irritability. Previously Dr Correa was concerned that bupropion was increasing irritability, though ongoing daytime work related and marital stressors seem to precipitate irritability. Ongoing stressor of FAP/cps case, that is still pending. p revious concern for c luster b personality traits. Discussed risk benefits and alternatives and patient amenable to med changes in bupropion. not interested in nicotine cessation. monitor for appropriate adherence of med. No safety concerns present during this eval. Patient remains appropriate for outpt level of care. plan medications --INCREASe to W ellbutrin 450mg XR daily for mood --continue Hydroxyzine 12.5mg - 25mg po prn tid as needed for anxiety seek out psychotherapy, referral placed rtc n ov 29 at 0900 in person. 1. C hronic post-traumatic stress disorder 2. 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 PMH AARON uses cpap, nicotine dependence, chronic pain, hx vit d deficiency. initial visit by Dr Correa Aug 2022. Hx of suicidal behavior in 2016. multiple d eployments Patient stopped Prozac due to sexual SE and noted benefit within a few days however with ongoing mood/hyperarousal symptoms. previously Started Lexapro but reported low adherence. previous trial of topamax for mood stability and low frustration tolerance b ut did not like the way he felt and he stopped using it after a very short trial. Has noted benefit from Wellbutrin and will increase to 450mg as he continues to have breakthrough anxiety, ongoing irritability. Previously Dr Correa was concerned that bupropion was increasing irritability, though ongoing daytime work related stressors that seem to precipitate irritability. Ongoing stressor of FAP/cps case, that is still pending. Transition to marriage in summer 2022. Patient shares cognitive distortions and externalization and has hx of emotional neglect that noticeably changes his affect when discussing. Has cluster b personality traits. Discussed risk benefits and alternatives and patient amenable to med changes. not interested in nicotine cessation. Will discontinue Trazodone and Ramelteon as he is no longer having trouble with sleep with onset of cpap and he had not been taking. No safety concerns present during this initial eval. Patient remains appropriate for outpt level of care. plan medications --increase to Wellbutrin 450mg XR daily for mood --continue Hydroxyzine 25mg po prn tid as needed for anxiety --discontinue Trazodone 50-100mg PRN for insomnia --discontinue Ramelteon 8mg for insomnia --discontinue Topomax 25mg daily for irritability/RUBIN seek out psychotherapy, placed referral 1. D epression, unspecified 2. C hronic post-traumatic stress disorder Ordered: Referral Request 2.0 Orders: buPROPion(buPROPion 150 mg/24 hours (XL) oral tablet, extended release), 3 tab(s), Oral, every 24 hr, # 90 tab(s), 3 total refill(s), Maintenance, 3 tab(s) Oral every 24 hr, Pharmacy: [facility] #[id number] [External Rx] hydrOXYzine(hydrOXYzine hydrochloride 25 mg oral tablet), 1 tab(s), Oral, TID, PRN as needed for anxiety, # 60 tab(s), 2 total refill(s), Acute, 04/20/2024, 1 tab(s) Oral TID,PRN:as needed for anxiety, Pharmacy: [facility] #[id number] [External Rx] Extracted from:Title: [facility], 6T, MultiD, Psychiatry Follow Up Note Author: Kraig Correa Date: 01/10/23 This is a 37 yo 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 Current dx impression concerning for PTSD and also meets criteria for MDD. He is p harmacologically treatment naive. W ill start Prozac per his stated preference when discussing initial agents with indications to aid his treatment. Someone else is prescribing him hydroxyzine which he uses and finds somewhat helpful. Gabapentin would be good agent to explore in future in lieu of Hydroxyzine but currently patient feels it is helpful enough to not merit changing. Today sleep is primary issue so will start Trazodone. Discussed the risks, benefits, and alternatives and patient agreeable to trial. Will titrate prozac due to partial response. [1] Patient stopped Prozac due to sexual SE and noted benefit within a few days however with ongoing mood/hyperarousal symptoms. Instead of salvaging this medication that was otherwise helpful will try another agent particularly as patient has been off for 6 days (acknowledging long half life). Started Lexapro at [facility] but reporting low adherence. As patient primary wanting to work on motivation and low energy, will trial alternative medication with more dopaminergic/nonepienphric tone like Wellbutrin. We've now titrated to 300mg but not titrating further due to immergence of increased irritability. Wanting to continue agent but ongoing low frustration tolerance so will add Topomax (pt also endorsing frequent RUBIN). Discussed risk benefits and alternatives and patient amenable to starting. Will continue Hydroxyzine Trazodone and Ramelteon (not started yet). Sleep consult approved, pending actual appt. Employed [place] approach to consideration of psychosocial stressors. No safety concerns present during this initial eval. Patient remains appropriate for outpt level of care. 1. D epression, unspecified --Continue Wellbutrin 300mg XR daily 2. P ost-traumatic stress disorder, chronic --Continue PRN Hydroxyzine --Continue Trazodone 50-100mg PRN for insomnia --Start Rameltino 8mg for insomnia --Start Topomax 2 5mg daily for irritability/RUBIN Orders: topiramate(topiramate 25 mg oral capsule, extended release), 1 cap(s), Oral, Daily, take one tab at night, # 7 cap(s), 0 total refill(s), Maintenance, 1 cap(s) Oral Daily,Instr:take one tab at night, Pharmacy: [facility] #[id number] [External Rx] Prognosis: Fair Benefits, Risks, Alternatives Discussed: Yes Treatment Plan: Referral to individual, family or group therapy Number of Visits Expected: Other: TBD Target Symptoms: Anxiety Goals of Treatment: Decrease in target symptoms, Other: Methods of Monitoring Outcomes: Other: TBD Evaluation Type: Time based Goals of Treatment #1: Other: Deferred Treatment Planning Requirements: 2) Patient agrees to attend appointments, engage in treatment, discuss any concerns in order to meet treatment goals, 3) Provider will leverage patient strengths and limit potential barriers to treatment Extracted from:Title: [facility], 6T, MultiD, Psychiatry Follow Up Note Author: Kraig Correa Date: 12/20/22 T his is a 37 yo 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 Current dx impression concerning for PTSD and also meets criteria for MDD. He is p harmacologically treatment naive. W ill start Prozac per his stated preference when discussing initial agents with indications to aid his treatment. Someone else is prescribing him hydroxyzine which he uses and finds somewhat helpful. Gabapentin would be good agent to explore in future in lieu of Hydroxyzine but currently patient feels it is helpful enough to not merit changing. Today sleep is primary issue so will start Trazodone. Discussed the risks, benefits, and alternatives and patient agreeable to trial. Will titrate prozac due to partial response. [1] Patient stopped Prozac due to sexual SE and noted benefit within a few days however with ongoing mood/hyperarousal symptoms. Instead of salvaging this medication that was otherwise helpful will try another agent particularly as patient has been off for 6 days (acknowledging long half life). Started Lexapro at [facility] but reporting low adherence. As patient primary wanting to work on motivation and low energy, will trial alternative medication with more dopaminergic/nonepienphric tone like Wellbutrin. Given benefit of PRN Hydroxyzine, will increase dose to reflect how patient is actually taking it.[1] Wellbutrin has been helpful for energy during day but not titrating today due to ongoing anxiety/irritability symptoms. Instead will titrate PRN traz and add ramelteon as sleep is foremost concern today. Topomax/Prazosin will be next step for hyperarousal sx although not nightmare burden. M y sleep consult was rejected so submitted again today with extensive justification. Employed [place] approach to consideration of psychosocial stressors. No safety concerns present during this initial eval. Patient remains appropriate for outpt level of care. 1. P ost-traumatic stress disorder, chronic --Continue PRN Hydroxyzine --Continue Trazodone 50-100mg PRN for insomnia --Start Rameltino 8mg for insomnia 2. M ajor depressive disorder, recurrent, moderate --Continue Wellbutrin 300mg XR daily Orders: ramelteon(ramelteon 8 mg oral tablet), 1 tab(s), Oral, every day at bedtime, # 30 tab(s), 3 total refill(s), Maintenance, 1 tab(s) Oral every day at bedtime, Pharmacy: [facility] #[id number] [External Rx] traZODone(traZODone 50 mg oral tablet), 1 tab(s), Oral, every day at bedtime, PRN sleep, take 2 tabs at night for insomnia, # 60 tab(s), 2 total refill(s), Maintenance, 1 tab(s) Oral every day at bedtime,PRN:sleep,Instr:take 2 tabs at night for insomnia, Pharmacy: [facility] #[id number] [E Referral Request 2.0 Prognosis: Fair Benefits, Risks, Alternatives Discussed: Yes Treatment Plan: Referral to individual, family or group therapy Number of Visits Expected: Other: TBD Target Symptoms: Anxiety Goals of Treatment: Decrease in target symptoms, Other: Methods of Monitoring Outcomes: Other: TBD Evaluation Type: Time based Goals of Treatment #1: Other: Deferred Treatment Planning Requirements: 2) Patient agrees to attend appointments, engage in treatment, discuss any concerns in order to meet treatment goals, 3) Provider will leverage patient strengths and limit potential barriers to treatment Extracted from:Title: [facility], 6T, MultiD, Psychiatry Follow Up Note Author: Kraig Correa Date: 11/22/22 This is a 37 yo 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 Current dx impression concerning for PTSD and also meets criteria for MDD. He is p harmacologically treatment naive. W ill start Prozac per his stated preference when discussing initial agents with indications to aid his treatment. Someone else is prescribing him hydroxyzine which he uses and finds somewhat helpful. Gabapentin would be good agent to explore in future in lieu of Hydroxyzine but currently patient feels it is helpful enough to not merit changing. Today sleep is primary issue so will start Trazodone. Discussed the risks, benefits, and alternatives and patient agreeable to trial. Will titrate prozac due to partial response. [1] Patient stopped Prozac due to sexual SE and noted benefit within a few days however with ongoing mood/hyperarousal symptoms. Instead of salvaging this medication that was otherwise helpful will try another agent particularly as patient has been off for 6 days (acknowledging long half life). Started Lexapro at but reporting low adherence. As patient primary wanting to work on motivation and low energy, will trial alternative medication with more dopaminergic/nonepienphric tone like Wellbutrin. Given benefit of PRN Hydroxyzine, will increase dose to reflect how patient is actually taking it.[1] Partial beenfit from Wellbutrin but ongoign sx so will titrate. Still waiting for sleep study. Put in order as well. Patient will call [facility] line to check status. Employed [place] approach to consideration of psychosocial stressors. No safety concerns present during this initial eval. Patient remains appropriate for outpt level of care. 1. P ost-traumatic stress disorder, chronic --Continue PRN Hydroxyzine --Continue Trazodone 50-100mg PRN for insomnia 2. M ajor depressive disorder, recurrent, moderate --Stop Lexapro --Inc to Wellbutrin 300mg XR daily Orders: buPROPion(buPROPion 300 mg/24 hours (XL) oral tablet, extended release), 1 tab(s), Oral, every 24 hr, # 30 tab(s), 3 total refill(s), Maintenance, 1 tab(s) Oral every 24 hr, Pharmacy: [facility] #[id number] [External Rx] Prognosis: Fair Benefits, Risks, Alternatives Discussed: Yes Treatment Plan: Referral to individual, family or group therapy Number of Visits Expected: Other: TBD Target Symptoms: Anxiety Goals of Treatment: Decrease in target symptoms, Other: Methods of Monitoring Outcomes: Other: TBD Evaluation Type: Time based Goals of Treatment #1: Other: Deferred Treatment Planning Requirements: 2) Patient agrees to attend appointments, engage in treatment, discuss any concerns in order to meet treatment goals, 3) Provider will leverage patient strengths and limit potential barriers to treatment Extracted from:Title: [facility], 6T, MultiD, Psychiatry Follow Up Note Author: Kraig Correa Date: 11/01/22 This is a 37 yo 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 Current dx impression concerning for PTSD and also meets criteria for MDD. He is p harmacologically treatment naive. W ill start Prozac per his stated preference when discussing initial agents with indications to aid his treatment. Someone else is prescribing him hydroxyzine which he uses and finds somewhat helpful. Gabapentin would be good agent to explore in future in lieu of Hydroxyzine but currently patient feels it is helpful enough to not merit changing. Today sleep is primary issue so will start Trazodone. Discussed the risks, benefits, and alternatives and patient agreeable to trial. Will titrate prozac due to partial response. [1] Patient stopped Prozac due to sexual SE and noted benefit within a few days however with ongoing mood/hyperarousal symptoms. Instead of salvaging this medication that was otherwise helpful will try another agent particularly as patient has been off for 6 days (acknowledging long half life). Started Lexapro at [facility] but reporting low adherence. As patietn primary wanting to work on motivation and low energy, will trial alternative medication with more dopaminergic/nonepienphric tone like Wellbutrin. Given benefit of PRN Hydroxyzine, will increase dose to reflect how patient is actually taking it. Still waiting for sleep study. Messaged PCM to help expedite and encouraged patient to call [facility] line to check status. No safety concerns present during this initial eval. Patient remains appropriate for outpt level of care. We agree to meet in person for out next appt 11/22 at 1:00AM 1. M oneyda depressive disorder, recurrent, moderate --Stop Lexapro --Start Wellbutrin 150mg XR daily 2. P ost-traumatic stress disorder, chronic --Continue PRN Hydroxyzine --Continue Trazodone 50-100mg PRN for insomnia Orders: hydrOXYzine(hydrOXYzine hydrochloride 25 mg oral tablet), 1 tab(s), Oral, Daily, # 60 tab(s), 2 total refill(s), Acute, 11/02/2025, 1 tab(s) Oral Daily, Pharmacy: [facility] #[id number] [External Rx] buPROPion(Wellbutrin XL 150 mg/24 hours oral tablet, extended release), 1 tab(s), Oral, every 24 hr, # 30 tab(s), 0 total refill(s), Maintenance, 1 tab(s) Oral every 24 hr, Pharmacy: [facility] #[id number] [External Rx] Prognosis: Fair Benefits, Risks, Alternatives Discussed: Yes Treatment Plan: Referral to individual, family or group therapy Number of Visits Expected: Other: TBD Target Symptoms: Anxiety Goals of Treatment: Decrease in target symptoms, Other: Methods of Monitoring Outcomes: Other: TBD Evaluation Type: Time based Goals of Treatment #1: Other: Deferred Treatment Planning Requirements: 2) Patient agrees to attend appointments, engage in treatment, discuss any concerns in order to meet treatment goals, 3) Provider will leverage patient strengths and limit potential barriers to treatment Extracted from:Title: [facility], 6T, MultiD, Psychiatry Follow Up Note Author: Kraig Correa Date: 10/04/22 This is a 37 yo 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 Current dx impression concerning for PTSD and also meets criteria for MDD. He is p harmacologically treatment naive. W ill start Prozac per his stated preference when discussing initial agents with indications to aid his treatment. Someone else is prescribing him hydroxyzine which he uses and finds somewhat helpful. Gabapentin would be good agent to explore in future in lieu of Hydroxyzine but currently patient feels it is helpful enough to not merit changing. Today sleep is primary issue so will start Trazodone. Discussed the risks, benefits, and alternatives and patient agreeable to trial. Will titrate prozac due to partial response. [1] Patient stopped Prozac due to sexual SE and noted benefit within a few days however with ongoing mood/hyperarousal symptoms. Instead of salvaging this medication that was otherwise helpful will try another agent particularly as patient has been off for 6 days (acknowledging long half life). No safety concerns present during this initial eval. Patient remains appropriate for outpt level of care. W e agree to meet in person for out next appt 11/01 at 11:00AM 1. D epression, unspecified --Stop Prozac --Start Lexapro 2.5mg to increase to 5mg after 3-4 days if tolerated 2. P ost-traumatic stress disorder, chronic --Start Lexapro 2.5mg to increase to 5mg after 3-4 days if tolerated --Continue PRN Hydroxyzine --Continue Trazodone 50-100mg PRN for insomnia Orders: hydrOXYzine(hydrOXYzine hydrochloride 10 mg oral tablet), See Instructions, take 1/2 to 1 tablet by mouth twice a day as needed for acute anxiety. May take 1/2 to 3 tablets at bedtime as needed for sleep, # 90 tab(s), 1 total refill(s), Maintenance, take 1/2 to 1 tablet by mouth twice a day as needed for acu... escitalopram(Lexapro 5 mg oral tablet), 2 tab(s), Oral, Daily, Take one half tab (2.5mg) for 3-4 days, then increase to 5mg daily, # 60 tab(s), 0 total refill(s), Maintenance, 2 tab(s) Oral Daily,Instr:Take one half tab (2.5mg) for 3-4 days, then increase to 5mg daily, Pharmacy: [facility]. No qualifying data available. Extracted from:Title: [facility], 6T, MultiD, Psychiatry Follow Up Note Author: Madeline Kraig [place] Date: 09/20/22 This is a 37 yo 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 Current dx impression concerning for PTSD and also meets criteria for MDD. He is p harmacologically treatment naive. W ill start Prozac per his stated preference when discussing initial agents with indications to aid his treatment. Someone else is prescribing him hydroxyzine which he uses and finds somewhat helpful. Gabapentin would be good agent to explore in future in lieu of Hydroxyzine but currently patient feels it is helpful enough to not merit changing. [1] Today sleep is primary issue so will start Trazodone. Discussed the risks, benefits, and alternatives and patient agreeable to trial. Will titrate prozac due to partial response. No safety concerns present during this initial eval. Patient remains appropriate for outpt level of care. 1. P ost-traumatic stress disorder, chronic --Increase to Prozac 30mg daily for PTSD/Mood --Start Trazodone 50-100mg at night PRN for insomnia 2. M ajor depressive disorder, recurrent, moderate --Increase to Prozac 30mg daily for PTSD/Mood --Start Trazodone 50-100mg at night PRN for insomnia --Continue Hydroxyzine 10mg TID PRN for anxiety Orders: FLUoxetine(FLUoxetine 10 mg oral capsule), 1 cap(s), Oral, Daily, Take three tabs (30mg) for mood, # 90 cap(s), 2 total refill(s), Maintenance, 1 cap(s) Oral Daily,Instr:Take three tabs (30mg) for mood, Pharmacy: [id number] [External Rx] traZODone(traZODone 50 mg oral tablet), 1 tab(s), Oral, every day at bedtime, PRN sleep, take 1-2 tabs at night for insomnia, # 60 tab(s), 1 total refill(s), Maintenance, 1 tab(s) Oral every day at bedtime,PRN:sleep,Instr:take 1-2 tabs at night for insomnia, Pharmacy: [facility]... Prognosis: Fair Benefits, Risks, Alternatives Discussed: Yes Treatment Plan: Referral to individual, family or group therapy Number of Visits Expected: Other: TBD Target Symptoms: Anxiety Goals of Treatment: Decrease in target symptoms, Other: Methods of Monitoring Outcomes: Other: TBD Evaluation Type: Time based Goals of Treatment #1: Other: Deferred Treatment Planning Requirements: 2) Patient agrees to attend appointments, engage in treatment, discuss any concerns in order to meet treatment goals, 3) Provider will leverage patient strengths and limit potential barriers to treatment Extracted from:Title: [facility], [facility], [facility], Psychiatry Inital Visit Note Author: Kraig Correa: 08/09/22 This is a 37 yo 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 Current dx impression concerning for PTSD and also meets criteria for MDD. He is p harmacologically treatment naive. W ill start Prozac per his stated preference when discussing initial agents with indications to aid his treatment. Someone else is prescribing him hydroxyzine which he uses and finds somewhat helpful. Gabapentin would be good agent to explore in future in lieu of Hydroxyzine but currently patient feels it is helpful enough to not merit changing. No safety concerns present during this initial eval. Patient remains appropriate for outpt level of care. 1. P ost-traumatic stress disorder, chronic --Prozac 10mg daily (titrated to 20mg after one week) 2. D epression, unspecified --Prozac 10mg daily (titrated to 20mg after one week) Orders: FLUoxetine(PROzac 10 mg oral capsule), See Instructions, Oral, take one capsule by mouth every day for 7 days, then take two capsules every day, # 53 cap(s), 3 total refill(s), Maintenance, 30 days, take one capsule by mouth every day for 7 days, then take two capsules every day, Pharmacy:... Prognosis: Fair Benefits, Risks, Alternatives Discussed: Yes Treatment Plan: Referral to individual, family or group therapy Number of Visits Expected: Other: TBD Target Symptoms: Anxiety Goals of Treatment: Decrease in target symptoms, Other: Methods of Monitoring Outcomes: Other: TBD Evaluation Type: Time based Goals of Treatment #1: Other: Deferred Treatment Planning Requirements: 2) Patient agrees to attend appointments, engage in treatment, discuss any concerns in order to meet treatment goals, 3) Provider will leverage patient strengths and limit potential barriers to treatment Extracted from:Title: Office Clinic Note Author: DIXON CAMPBELL MD Date: 07/14/22 Accessory navicular Ordered: CT Lower Extremity w/o Contrast Right Acquired pes planus Ordered: CT Lower Extremity w/o Contrast Right 1. Reviewed name, , medications and radiographs with patient. 2. Discussed non-surgical i ntervention with patient to include inserts, bracing, physical therapy to include ROM, stretching, balancing and strengthening exercises, rest, ice, elevation, compression, therapeutic injections as well as the expected a ctivity level. Patient confirms understanding. 3. The patient has been instructed to continue activity to tolerance 4. He will RTC for CT review of the right foot and orthotics f/u Extracted from:Title: Office Clinic Note Author: MARIE PINON NP Date: 05/12/22 1. F oot pain 36yo AD [facility] male with arch foot pain x 2 months; flat foot present; r/o fracture; thank you. 36yo AD [facility] male with arch foot pain x 2 months; flat foot present; ; please eval and treat. thank you. --This Referral Is Electronically Signed by the Ordering Provider-- Renewal on Mobic. If symptoms worsen or do not improve return to clinic or ER for reevaluation. Desires a profile for not running, 30 days recommended. Ordered: XR Foot Weight Bearing 3+ Right Referral Request 2.0 2. S hortness of breath 02/27/22 encounter for Shortness of breath; appointment was supposed to be for 04/23 but [place] and had to reschedule. CXR today. Keep pulmonary referral a ppointment already scheduled. Patient verbalized understanding of plan of care and stated agreement. R eferral to pulmonary chronic since COVID in Aug. Patient verbalized understanding of plan of care and stated agreement. 36yo AD [employer] male c/o shortness of breath with activity particularly with exercise since having COVID in August he feels like he cannot get a deep breath in please eval and treat. thank you. 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 Carolina moyer is cleared for PHA and to participate in AF fitness program without restriction. S ee attached ANNUAL PERIODIC HEATLH ASSESSMENT note. Carolina moyer denied having a splenectomy in the past. [place] moyer denies SI/HI. A vailable labs and radiology reports since last Annual PHA were reviewed and addressed if not addressed prior to this visit. [place] moyer states priority responses of occasional chest pain, dizziness, and abnormal heart rate especially post COVID and exercising; denied chest pain today, palpitations, SOB, ALMENDAREZ, syncope, nonradiating, dizziness; advised to go to emergency room; and to follow-up with PCM; verbalized understanding. [place] moyer advised to follow-up with PCM for post COVID symptoms (ie SOB, ALMENDAREZ, palpitations, chest pain, cough); if symptoms worsen, go to emergency room; verbalized understanding. Member reported travelling to [facility] for about 10 days on leave and advised to be seen by PCM or specialty provider; emergency room precautions braydon wolff to leaving; verbalized understanding. Member was advised to follow-up with pulmonology and PCM as recommended; verbalized understanding. [place] moyer was reminded to obtain the HIV lab draw when able. ?Appointment was completed via telephone, and lasted 5-10 min. Ordered: HIV-1/O/2 EPI [id number] Repository Sample EPI [id number] Extracted from:Title: Office Clinic Note Author: MARIE PINON NP Date: 02/27/22 1. L ow back pain 36yo AD [employer] male with acute on chronic low back pain needs x-ray and MRI evaluation; lumbar pain radiating down left leg to behind knee no trauma. prior h/o RFA bilaterally. x-ray and MRI patient given written instruction sheet to call for MRI scheduling referral to physical therapy; in between to his team on [place] profile f or no running, push ups, pull ups for 30 days; referral to physical therapy; will refer to pain management once MRI returned. Have prescribed M obic t o be used o nce daily and Flexeril nightly as needed for acute flare. D iscussed sedative side effects of Flexeril. Have also encouraged him to engage in flexibility training Have also placed consult with physical therapy for evaluation through back classes to help with patient education. Aurora luther has no red flags per history or exam. Have advised to return to clinic if symptoms persist or worsen. P ashkan verbalized understanding and agrees with plan. Lower back pain: Discussed associated risk factor strenuous work; patient has/not signs or symptoms red flags. Ddx includes but not limited to radiculopathy vs lumbar spinal stenosis vs Osteoarthritis - Will order MRI given symptoms of spinal cord compression,low risk of metastatic cancer or infection, radiculopathy can not attributable to a single nerve root level. -- Conservative therapy with PT - Pain control with NSAIDS pt denies allergy or other intolerance, chronic kidney disease, hypertension, peptic ulcer disease, or with cardiovascular disease. - non-benzodiazepine skeletal muscle relaxant (cyclobenzaprine) as long-term adjunctive pharmacotherapy - Ordered: cyclobenzaprine(Flexeril 10 mg oral tablet), 1 tab(s), Oral, every day at bedtime, # 30 tab(s), 0 total refill(s), Maintenance, 1 tab(s) Oral every day at bedtime, Pharmacy: [facility] [Not filled] meloxicam(Mobic 15 mg oral tablet), 1 tab(s), Oral, Daily, # 30 tab(s), 0 total refill(s), Maintenance, 1 tab(s) Oral Daily, Pharmacy: [facility] [Not filled] MRI Spine Lumbar w/o Contrast XR Spine Lumbosacral 4+ Views Referral Request 2.0 2. S hortness of breath Referral to pulmonary chronic since COVID in Aug. Patient verbalized understanding of plan of care and stated agreement. 36yo AD [employer] male c/o shortness of breath with activity particularly with exercise since having COVID in August he feels like he cannot get a deep breath in please eval and treat. thank you. --This Referral Is Electronically Signed by the Ordering Provider-- Ordered: Referral Request 2.0 10/27/[address] [place] [address] Functional Status Combined list of recent functional and cognitive assessments recorded at [facility] [employer] [facility] [employer] [facility] ([facility] Functional [place] Measurement (FIM) Scale: 1 = Total Assistance (Subject = 0% +), 2 = Maximal Assistance (Subject = 25% +), 3 = Moderate Assistance (Subject = 50% +), 4 = Minimal Assistance (Subject = 75% +), 5 = Supervision, 6 = Modified [place] (Device), 7 = Complete [place] (Timely, Safely). Assessment Date/Time Source Assessment Type Assessment Skill Assessment Score Assessment Details FUNCTIONAL Home Dietary Supplements Captured No
[2024-10-27] MEDS: ACETAMINOPHEN 500 MG TABLET 1000 MG PO (08:40)
[2024-10-27] MEDS: KETOROLAC 15 MG/ML VIAL (*BKC) IV PUSH (08:50)
--- NOTE | 2024-10-27 09:48 | P.PNAN_ITS ---
Anes - Initial Pre Proc Eval Procedure: Operation Date: 10/27/24 10:00 Proposed Procedures p Right Knee Arthroscopy with Patellar Debridement - Colton Carreon MD Date/Time: 10/27/24 09:48 Surgeon: Colton Carreon MD Pre Op Diagnosis: right knee patella flap tear Patient Data Age: 39 Gender: M Height: 1.75 m Weight: 94.1 kg Last Vital Signs Temp 97.5 F L 10/27/24 08:30 Pulse 81 10/27/24 08:30 Resp 14 10/27/24 08:30 BP 132/87 10/27/24 08:30 Pulse Ox 100 10/27/24 08:30 O2 Del Method Room Air 10/27/24 08:30 Allergies Allergy/AdvReac Type Severity Reaction Status Date / Time amoxicillin Allergy Intermediate Swelling Verified 10/27/24 08:36 Home Medications ?Medication ?Instructions ?Recorded ?Confirmed ?Type bupropion HCl 100 mg tablet,12 hr 100 mg PO DAILY 05/20/24 10/27/24 History sustained-release (Wellbutrin SR) hydroxyzine HCl 25 mg tablet 25 mg PO ONCE PRN anxiety 05/20/24 10/16/24 History gabapentin 300 mg capsule 300 mg PO TID 06/19/24 10/27/24 History Patient hx anesthesia problems: none Family hx anesthesia problems: none Results Review: All pre-operative results and documents have been reviewed as part of the pre- operative evaluation. [facility] Past Medical History Medical History Anxiety Depression PTSD (post-traumatic stress disorder) Surgical History Surgical History [place] teeth removed Social History Social History Smoking status: Current every day smoker Tobacco type: e-cigarettes/vaping Alcohol intake: current Drinks per week: 4 Substance use type: does not use Do You Feel Safe in your Home?: Yes Lack of Transportation: No Lack of Food: Never True Current Housing: I Have Housing Concerned About Future Housing: No Difficulty Paying Gas/Electric Bills: No Difficulty Paying for Meds: No Currently Unemployed: No Education: Bachelor's Degree Difficulty w/ Childcare or Family Care: No Living arrangements: with family Occupation/Education: occupation Additional occupation/education comments: [employer] Spiritual care concerns: No Anes - Eval Final PreProcedure Day of Procedure 10/27/24 09:48 Patient weight: obese Lungs: normal air movement Airway: Mallampati scale class 1 Neurological: alert and oriented Last oral intake: >/= 8 hours ASA classification: II Emergent: no Anesthetic plan: proceed Anesthesia type and monitoring: general GIVS and standard monitoring Results Review: All pre-operative results and documents have been reviewed as part of the pre- operative evaluation. AARON on CPAP. Informed Consent: The patient's anesthetic plan and its attendant risks and benefits were discussed with the patient/family/POA. Questions were solicited and answers provided to the satisfaction of the patient/family/POA.
--- NOTE | 2024-10-27 09:55 | WPDHPUPDATE1 ---
History and Physical Update Update Date/Time: 10/27/24 09:55 History and Physical has been reviewed, including an updated exam of the patient. There are NO changes in the patient's condition. Risks, benefits, and alternatives have been discussed and questions answered. Patient agrees to proceed with procedure. Discussed the possibility of opening the knee too.
[2024-10-27] MEDS: ceFAZolin 2 GM/D5W 50 ML 2 GM/50 ML BAG IVPB (10:02)
[2024-10-27] MEDS: LIDO 1%/EPINEPHRINE 1:100,000 20 ML VIAL 10 ML INFILTRATE (10:20)
--- NOTE | 2024-10-27 10:44 | W.PM.PROC2 ---
Procedure Note - Detailed Date of Procedure 10/27/24 Pre-op Diagnosis RIGHT knee patella flap tear Post-op Diagnosis Same Procedure Performed Debridement patella chondromalacia and flap tear Surgeon Colton Carreon MD Anesthesia General Indications Pain and Catching Description of Procedure Patient brought to operating room 7. General anesthetic was administered. He was sterilely prepped and draped in usual manner. Superomedial portal used for the outflow cannula. Inferolateral portal for scope, and inferomedial portal for the instruments. Diagnostic arthroscopy performed. The patella femoral joint showed delamination and tearing particularly laterally. The medial and lateral compartments look good. The menisci were intact. The ACL was intact. I tried to reach the degenerative facet from the medial side, but could not do it. I made 2 accessory portals laterally was able to reach the degenerative flap tear at that point. This is debrided back to a stable base such an nothing further could be pulled in the joint. As I told him before surgery he was down to eburnated bone and I could not change that. At this point the cartilage was stable. Insert which is drawn. Sutures placed for the portals. Patient left the operating with satisfactory condition. Estimated Blood Loss 20 Complications No immediate complications Condition Stable Disposition PACU [facility] Billing Surgery - Charge Forward: Surgery Billing (Arthroscopic Chondroplasty Patella [id number]???)
[2024-10-27] MEDS: LACTATED RINGERS 1,000 ML 30 ML IV CONT (10:56)
[2024-10-27] MEDS: oxyCODONE HCL (*CRX) 5 MG TAB IR PO (12:10)
== END 2024-10-27 13:02 | disposition home or self-care (01) ==
PROVIDERS: PCP Physician Assistant; Visit Provider Orthopaedic Surgery
PROC: (CPT 29870; principal; 2024-10-27 10:00)
DX: M23.8X1 Other internal derangements of right knee (principal); M94.261 Chondromalacia, right knee; E66.9 Obesity, unspecified; Z68.30 Body mass index [BMI] 30.0-30.9, adult; F17.290 Nicotine dependence, other tobacco product, uncomplicated
CPT/HCPCS: 29877; A9270; J0690; J1100; J1885; J2003; J2004; J2250; J2405; J2704; J3010; J7120